=== PATIENT | female | born 1945 | race Caucasian/White ===

== ENCOUNTER 2017-09-22 08:43 | Inpatient (IN) | payer OTHER ==
[~2017-09-22] VITALS: Ht 157.5 cm; Wt 107.2 kg
[~2017-09-22 08:43] MED LIST: ESCI10TA PO; LISI-706 PO; PERCOT PO; TRAM50TA2 PO; TRAZ50TA2 PO; ZOLP-158 PO
[2017-09-22] MEDS ORDERED: ceFAZolin 1GM/50ML 100 ML IV ONE (09:12)
[2017-09-22] MEDS ORDERED: ACETAMINOPHEN IV 1000 MG/100ML (10MG/ML) IV ONE (09:15)
[2017-09-22] MEDS ORDERED: PREGABALIN CAPSULE 75 MG CAP PO ONE (09:15)
[2017-09-22] MEDS ORDERED: ceFAZolin 1GM 2 GM in D5W 5% 100 ML IV ONE (09:15)
[2017-09-22] MEDS ORDERED: CELECOXIB 100 MG CAP PO ONE (09:15)
[2017-09-22] MEDS ORDERED: LIDOCAINE W/ EPINEPHRINE 2% INJ 20ML VIAL ONE (09:17)
[2017-09-22] MEDS ORDERED: ROPIVACAINE 0.5% (5MG/ML) 20ML AMPULE IJ ONE (09:17)
[2017-09-22] MEDS ORDERED: MIDAZOLAM HCL 1MG/1ML-2 ML VIAL ONE (09:26)
[2017-09-22] MEDS ORDERED: TRANEXAMIC ACID 1,000 mg/10ml INJ VIAL ONE (12:01)
[2017-09-22] MEDS ORDERED: KETOROLAC TROMETH 30 MG/ML 1ML VIAL ONE (12:03)
[2017-09-22] MEDS ORDERED: MORPHINE SULF(PF) 0.5MG/ML 10ML VIAL ONE ×2 (12:17→12:55)
[2017-09-22] MEDS ORDERED: ROCURONIUM 10MG/ML 10ML VIAL IV ONE (12:42)
[2017-09-22] MEDS ORDERED: fentaNYL CITRATE 5 ML ONE (12:42)
[2017-09-22] MEDS ORDERED: PROPOFOL 10 MG/ML 20 ML IV ONE (12:43)
[2017-09-22] MEDS ORDERED: GENTAMICIN SULF 80 MG/2 ML VIAL IV ONE (13:04)
[2017-09-22] MEDS ORDERED: DEXAMETHASONE SOD PHOS 10MG/1ML VIAL INJ IV ONE (13:04)
[2017-09-22] MEDS ORDERED: MORPHINE SULFATE INJECTION 1 ML ONE (13:50)
[2017-09-22] MEDS ORDERED: OXYCODONE HCL 5MG TAB PO PRN ×2 (16:45→17:15)
[2017-09-22] MEDS ORDERED: hydrALAZINE HCL 20 MG/ML VL IV PRN (16:45)
[2017-09-22] MEDS ORDERED: ePHEDrine SULFATE 50 MG/ML AMP IV PRN (16:45)
[2017-09-22] MEDS ORDERED: ACETAMINOPHEN 325 MG TAB PO PRN (16:45)
[2017-09-22] MEDS ORDERED: NITROGLYCERIN 0.4 MG SL TAB SL PRN (16:45)
[2017-09-22] MEDS ORDERED: MORPHINE SULFATE 4 MG/ML SYR/VIAL IV PRN ×3 (16:45)
[2017-09-22] MEDS ORDERED: ONDANSETRON HCL 4 MG/2 ML VIAL IV ONE (16:45)
[2017-09-22 17:14] LABS: Hematocrit 31.6 % (36.0-46.0); Hemoglobin 10.2 g/dL (12.2-16.2)
[2017-09-22] MEDS: LACTATED RINGER'S 1,000 ML IV SCH (18:04)
[2017-09-22 20:00] VITALS: BP 121/61
[2017-09-22] MEDS: ZOLPIDEM TARTRATE 5 MG TAB PO SCH (22:02)
[2017-09-22] MEDS: oxyCODONE ER 10 MG TAB PO SCH (22:02)
[2017-09-22] MEDS: ceFAZolin 1GM 2 GM in D5W 5% 100 ML IV SCH (22:02)
[2017-09-22 22:19] VITALS: BP 121/61
[2017-09-23] MEDS: LACTATED RINGER'S 1,000 ML IV SCH ×2 (02:13→12:45)
[2017-09-23 04:56] VITALS: BP 119/59
[2017-09-23] MEDS: ceFAZolin 1GM 2 GM in D5W 5% 100 ML IV SCH ×3 (05:56→21:57)
[2017-09-23 06:54] LABS: Basophils # (auto) 0 uL; Eosinophils # (auto) 0 uL; Hematocrit 28.7 % (36.0-46.0); Hemoglobin 9.4 g/dL (12.2-16.2); Lymphocytes # (auto) 0.6 uL; Lymphocytes % (auto) 4.7 % (10.0-50.0); Mean Corpuscular Hemoglobin 27.2 pg (28.0-32.0); Mean Corpuscular Hgb Conc. 32.7 g/dL (32.0-36.0); Mean Corpuscular Volume 83.2 fL (80.0-100.0); Monocytes # (auto) 0.7 uL; Monocytes % (auto) 4.9 % (0.0-12.0); Neutrophils # (auto) 12.1 uL; Neutrophils % (auto) 90.4 % (37.0-80.0); Platelet Count (auto) 280 10^3/uL (140-450); Red Blood Cells 3.45 10^6/uL (4.0-5.20); Red Cell Distribution Width 14.4 % (11.8-14.3); White Blood Cell 13.4 10^3/uL (4.4-10.8)
[2017-09-23 07:08] LABS: BUN/Creatinine Ratio 21.3; Calcium 8.9 mg/dL (8.5-10.1)
[2017-09-23 08:00] VITALS: BP 112/60
[2017-09-23] MEDS: ENOXAPARIN SOD 40 MG/0.4 ML SYRINGE SC SCH (09:29)
[2017-09-23] MEDS: LISINOPRIL 20 MG TAB PO SCH (09:31)
[2017-09-23] MEDS: oxyCODONE ER 10 MG TAB PO SCH ×2 (09:31→21:56)
[2017-09-23] MEDS: CITALOPRAM HYDROBR 20 MG TAB PO SCH (09:31)
[2017-09-23] MEDS: HCTZ 25 MG TAB PO SCH (09:32)
[2017-09-23] MEDS: PATIENTS OWN MEDICATION (Lisinopril & Hydrochlorothiazi (Zestoretic 20-12.5 mg) 1 TAB) PO SCH (09:52)
[2017-09-23 09:53] VITALS: BP 112/60
[2017-09-23] MEDS: KETOROLAC TROMETH 30 MG/ML 1ML VIAL IV PRN ×2 (12:29→20:16)
[2017-09-23 13:00] VITALS: BP 111/90
[2017-09-23 16:36] VITALS: BP 121/61
[2017-09-23 21:49] VITALS: BP 110/85
[2017-09-23] MEDS: ZOLPIDEM TARTRATE 5 MG TAB PO SCH (21:56)
[2017-09-24] VITALS (7 sets, daily range): BP systolic 106–145; BP diastolic 53–69
[2017-09-24] MEDS: KETOROLAC TROMETH 30 MG/ML 1ML VIAL IV PRN ×3 (04:58→20:51)
[2017-09-24] MEDS: ceFAZolin 1GM 2 GM in D5W 5% 100 ML IV SCH ×3 (05:39→22:27)
[2017-09-24] MEDS: LISINOPRIL 20 MG TAB PO SCH ×2 (10:00→11:00)
[2017-09-24] MEDS: PATIENTS OWN MEDICATION (Lisinopril & Hydrochlorothiazi (Zestoretic 20-12.5 mg) 1 TAB) PO SCH (10:00)
[2017-09-24] MEDS: CITALOPRAM HYDROBR 20 MG TAB PO SCH (10:52)
[2017-09-24] MEDS: oxyCODONE ER 10 MG TAB PO SCH ×2 (10:56→22:27)
[2017-09-24] MEDS: ENOXAPARIN SOD 40 MG/0.4 ML SYRINGE SC SCH (11:00)
[2017-09-24] MEDS: LACTATED RINGER'S 1,000 ML IV SCH ×3 (11:01→19:23)
[2017-09-24] MEDS: HCTZ 25 MG TAB PO SCH (11:04)
[2017-09-24] MEDS ORDERED: hydrALAZINE HCL 20 MG/ML VL IV PRN (13:45)
[2017-09-24] MEDS: ZOLPIDEM TARTRATE 5 MG TAB PO SCH (22:26)
[2017-09-25] MEDS: LACTATED RINGER'S 1,000 ML IV SCH ×2 (04:44→14:45)
[2017-09-25 05:30] VITALS: BP 142/67
[2017-09-25] MEDS: ceFAZolin 1GM 2 GM in D5W 5% 100 ML IV SCH ×2 (05:57→16:11)
[2017-09-25 09:12] VITALS: BP 134/60
[2017-09-25] MEDS: CITALOPRAM HYDROBR 20 MG TAB PO SCH (09:28)
[2017-09-25] MEDS: oxyCODONE ER 10 MG TAB PO SCH (09:28)
[2017-09-25] MEDS: ENOXAPARIN SOD 40 MG/0.4 ML SYRINGE SC SCH (09:29)
[2017-09-25] MEDS: HCTZ 25 MG TAB PO SCH (09:29)
[2017-09-25] MEDS: PATIENTS OWN MEDICATION (Lisinopril & Hydrochlorothiazi (Zestoretic 20-12.5 mg) 1 TAB) PO SCH (09:32)
[2017-09-25] MEDS: LISINOPRIL 20 MG TAB PO SCH (09:32)
[2017-09-25 12:19] VITALS: BP 147/60
[2017-09-25] MEDS: KETOROLAC TROMETH 30 MG/ML 1ML VIAL IV PRN (15:57)
[2017-09-25 16:34] VITALS: BP 147/64
== END 2017-09-25 17:30 | DRG 470 ==
LOC: SUR 08:43 → CENTRAL 08:44
PROVIDERS: ADMIT Orthopaedic Surgery Adult Reconstructive Orthopaedic Surgery; ATTEND Orthopaedic Surgery Adult Reconstructive Orthopaedic Surgery
PROC: 0SRB0JZ Replacement of Left Hip Joint with Synthetic Substitute, Open Approach (ICD-10-PCS; principal; 2017-09-23)
DX: M16.12 Unilateral primary osteoarthritis, left hip (principal); F32.9 Major depressive disorder, single episode, unspecified; I10 Essential (primary) hypertension; M81.0 Age-related osteoporosis without current pathological fracture; R32 Unspecified urinary incontinence; Z87.891 Personal history of nicotine dependence; Q72.812 Congenital shortening of left lower limb; Z74.01 Bed confinement status
CPT/HCPCS: 36415; 72170; 73501; 80048; 85014; 85018; 85025; 86850; 86900; 86901; 97116; 97163; 97530; A4565; J0131; J0690; J1100; J1885; J2250; J2405; J2704; J7060

== ENCOUNTER 2021-04-08 17:22 | Emergency (ER) | payer OTHER ==
[~2021-04-08] VITALS: Ht 162.6 cm; Wt 108.4 kg
[~2021-04-08 17:22] MED LIST changes: -ESCI10TA PO; -ZOLP-158 PO
[2021-04-08 20:59] VITALS: BP 127/49
[2021-04-08] MEDS ORDERED: KETOROLAC TROMETH 60MG/2ML VIAL IM ONE (21:15)
[2021-04-08] MEDS ORDERED: methylPREDNISolone SOD SUCC 125 MG/2 ML VL IM ONE (21:15)
== END 2021-04-08 23:05 | disposition home or self-care (01) ==
LOC: ER 17:22
DX: M16.11 Unilateral primary osteoarthritis, right hip (principal); M25.551 Pain in right hip; E66.9 Obesity, unspecified; I10 Essential (primary) hypertension; Z68.41 Body mass index [BMI] 40.0-44.9, adult; Z79.899 Other long term (current) drug therapy; Z87.891 Personal history of nicotine dependence
CPT/HCPCS: 72100; 73502; 96372; 99284; J1885; J2930

== ENCOUNTER 2023-04-02 17:23 | Emergency (ER) | payer OTHER ==
[~2023-04-02] VITALS: Ht 165.1 cm; Wt 90.9 kg
[~2023-04-02 17:23] MED LIST changes: +TRAZ-227 PO; -TRAZ50TA2 PO
[2023-04-02 18:30] VITALS: PULSE 67; RESP 12; O2SAT 94
[2023-04-02 20:00] VITALS: BP 154/61; PULSE 72; RESP 16; TEMP 98.1; O2SAT 93
== END 2023-04-02 20:03 | disposition home or self-care (01) ==
LOC: EDBD 17:23 → ER 17:23
DX: S01.112A Laceration without foreign body of left eyelid and periocular area, initial encounter (principal); M54.50 Low back pain, unspecified; M54.2 Cervicalgia; M25.552 Pain in left hip; I10 Essential (primary) hypertension; Z87.891 Personal history of nicotine dependence; Z79.899 Other long term (current) drug therapy; V87.8XXA Person injured in other specified noncollision transport accidents involving motor vehicle (traffic), initial encounter; Y93.89 Activity, other specified; Y92.89 Other specified places as the place of occurrence of the external cause; Y99.8 Other external cause status
CPT/HCPCS: 12011; 70450; 72100; 72125; 73502

== ENCOUNTER 2023-12-08 07:26 | Inpatient (IN) | payer OTHER ==
[~2023-12-08] VITALS: Ht 162.6 cm; Wt 97.5 kg
[2023-12-08] VITALS (12 sets, daily range): BP systolic 92–135; BP diastolic 53–64; PULSE 61–95; RESP 14–20; TEMP 97.5–97.8; O2SAT 81–98
[~2023-12-08 07:26] MED LIST changes: +ACET-1304 PO; +AMLO1TAB23 PO; +CHOL20004 PO; +FERR65TA12 PO; -LISI-706 PO; +METH50006 SL; +MORP15TA PO; +OMEP-434 PO; -PERCOT PO; -TRAM50TA2 PO; -TRAZ-227 PO
[2023-12-08] MEDS: ACETAMINOPHEN IV 100 ML IV ONE (08:51)
[2023-12-08] MEDS: ceFAZolin 2 GM/D5W50ml 50 ML IV ONE (08:51)
[2023-12-08] MEDS: BUPIVACAINE 0.25% INJ 50ML VIAL ONE (09:16)
[2023-12-08] MEDS: VANCOMYCIN HCL 1000 MG VL ONE (09:16)
[2023-12-08] MEDS: TRANEXAMIC ACID 20 ML ONE (09:16)
[2023-12-08] MEDS: ACETAMINOPHEN IV 1000 MG/100ML (10MG/ML) IV ONE (09:20)
[2023-12-08] MEDS: CELECOXIB 100 MG CAP PO ONE (09:20)
[2023-12-08] MEDS ORDERED: MORPHINE SULF PF 5 MG/10 ML VIAL ONE (09:26)
[2023-12-08] MEDS ORDERED: fentaNYL CITRATE 100 MCG/2 ML VL ONE (09:26)
[2023-12-08] MEDS ORDERED: MIDAZOLAM HCL 2MG/2ML 2ml VIAL (1mg/ml) ONE ×2 (09:26)
[2023-12-08] MEDS: TETRACAINE 1% INJ 2 ML VIAL IJ ONE (09:36)
[2023-12-08] MEDS ORDERED: NALOXONE HCL 0.4 MG/ML VIAL IV PRN (10:15)
[2023-12-08] MEDS: ONDANSETRON HCL 4 MG/2 ML VIAL IV ONE (10:15)
[2023-12-08] MEDS ORDERED: ONDANSETRON HCL 4 MG/2 ML VIAL IV PRN ×2 (10:15→11:45)
[2023-12-08] MEDS ORDERED: MIDAZOLAM HCL 2MG/2ML 2ml VIAL (1mg/ml) IV PRN (10:15)
[2023-12-08] MEDS ORDERED: HYDROmorphone HCL 2 MG/ML VL/or syr IV PRN ×2 (10:15→11:45)
[2023-12-08] MEDS ORDERED: DexAMETHasone SOD PHOS 10MG/1ML VIAL INJ IV PRN (10:15)
[2023-12-08] MEDS ORDERED: LABETALOL HCL 5 MG/ML 4ML SYRINGE IV PRN (10:15)
[2023-12-08] MEDS ORDERED: ePHEDrine SULFATE 50 MG/ML AMP IV PRN (10:15)
[2023-12-08] MEDS ORDERED: DexAMETHasone SOD PHOS 10MG/1ML VIAL INJ ONE (11:05)
[2023-12-08] MEDS: KETOROLAC TROMETH 30 MG/ML 1ML VIAL ONE (11:25)
[2023-12-08] MEDS: MORPHINE SULF PF 5 MG/10 ML VIAL ONE (11:25)
[2023-12-08] MEDS ORDERED: MORPHINE SULFATE INJ 2 MG/ml SYRG IV PRN (11:45)
[2023-12-08] MEDS: LACTATED RINGER'S 1,000 ML IV SCH (11:45)
[2023-12-08] MEDS ORDERED: OXYCODONE W/ ACETAMINOPHEN 5/325MG TABLET PO PRN (11:45)
[2023-12-08] MEDS ORDERED: NITROGLYCERIN 0.4 MG SL TAB SL PRN (11:45)
[2023-12-08] MEDS ORDERED: MORPHINE SULFATE 15 MG PO SCH (14:00)
[2023-12-08] MEDS: SODIUM CHLOR 0.9% PF (SALINE LOCK) 10ML VIAL/SYR IV SCH (14:00)
[2023-12-08] MEDS: ceFAZolin 1GM/50ML 50 ML IV SCH (14:43)
[2023-12-08] MEDS: PREGABALIN CAPSULE 75 MG CAP PO SCH (14:44)
[2023-12-08] MEDS: FERROUS SULFATE DRIED 65 MG PO SCH (18:00)
[2023-12-08] MEDS ORDERED: OMEPRAZOLE MAGNESIUM 40 MG PO SCH (18:00)
[2023-12-08] MEDS: DOCUSATE SOD 100 MG CAP PO SCH (21:45)
[2023-12-08] MEDS: oxyCODONE ER 10 MG TAB PO SCH (22:00)
[2023-12-09] VITALS (27 sets, daily range): BP systolic 113–150; BP diastolic 47–93; PULSE 57–89; RESP 12–99; TEMP 97.6–98.7; O2SAT 92–99
[2023-12-09 06:12] LABS: Hematocrit 30.1 % (36.0-46.0); Hemoglobin 9.2 g/dL (12.2-16.2)
[2023-12-09 06:32] LABS: Albumin 3.3 g/dL (3.2-4.8); Alkaline Phosphatase 67 U/L (46-116); Anion Gap 7 (5-15); Aspartate Aminotransferase 19 U/L (13-40); Bilirubin, Total 0.2 mg/dL (0.2-1.0); Blood Urea Nitrogen 18 mg/dL (9-23); Calcium 10.3 mg/dL (8.5-10.1); Carbon Dioxide 25 mmol/L (20-30); Chloride 105 mmol/L (98-107); Glucose 138 mg/dL (74-106); Potassium 3.7 mmol/L (3.5-5.1); Sodium 137 mmol/L (136-145); Total Protein 5.8 g/dL (5.7-8.2)
[2023-12-09 06:37] LABS: Alanine Aminotransferase < 9 U/L (7-40)
[2023-12-09] MEDS: PANTOPRAZOLE 40 MG TAB PO SCH (09:56)
[2023-12-09] MEDS: ENOXAPARIN SOD 40 MG/0.4 ML SYRINGE SC SCH (09:56)
[2023-12-09] MEDS: ceFAZolin 1GM/50ML 50 ML IV ONE (09:56)
[2023-12-09] MEDS: amLODIPine BESYLATE 5 MG TAB PO SCH (09:58)
[2023-12-09] MEDS ORDERED: CHOLECALCIFEROL PO SCH (10:00)
[2023-12-09] MEDS ORDERED: PATIENTS OWN MEDICATION (Amlodipine Besylate 10 MG) PO SCH (10:00)
[2023-12-09] MEDS: MECOBALAMIN SL SCH (10:00)
[2023-12-10 00:59] VITALS: O2SAT 96
[2023-12-10 01:06] VITALS: BP 143/64; PULSE 58; RESP 17; TEMP 98.7; O2SAT 91
[2023-12-10 05:00] VITALS: BP 139/64; PULSE 62; RESP 19; TEMP 97.7; O2SAT 99
[2023-12-10 06:50] LABS: Hematocrit 27.9 % (36.0-46.0); Hemoglobin 8.7 g/dL (12.2-16.2)
[2023-12-10 08:00] VITALS: PULSE 62; O2SAT 93
[2023-12-10 09:00] VITALS: BP 146/52; PULSE 67; RESP 18; TEMP 98.3; O2SAT 93
[2023-12-10 13:00] VITALS: BP 114/45; PULSE 62; RESP 20; TEMP 99.2; O2SAT 95
== END 2023-12-10 15:50 | disposition home health service (06) | DRG 470 ==
LOC: SUR 07:26 → TELE 11:37 → TELE-CENTR 16:36
PROVIDERS: ADMIT Orthopaedic Surgery Adult Reconstructive Orthopaedic Surgery; ATTEND Orthopaedic Surgery Adult Reconstructive Orthopaedic Surgery
PROC: 0SR9019 Replacement of Right Hip Joint with Metal Synthetic Substitute, Cemented, Open Approach (ICD-10-PCS; principal; 2023-12-08 09:43)
DX: M16.11 Unilateral primary osteoarthritis, right hip (principal); E78.00 Pure hypercholesterolemia, unspecified; M79.18 Myalgia, other site; I10 Essential (primary) hypertension; Z82.49 Family history of ischemic heart disease and other diseases of the circulatory system
CPT/HCPCS: 36415; 72170; 73501; 80053; 85014; 85018; 86850; 86900; 86901; 97110; 97116; 97163; 97530; G0378; J0131; J1100; J1885; J2250; J3490

== ENCOUNTER 2025-07-17 07:55 | Inpatient (IN) | payer OTHER ==
[~2025-07-17] VITALS: Ht 162.6 cm; Wt 92.0 kg
[2025-07-17 08:50] VITALS: PULSE 53; RESP 11; O2SAT 98
--- NOTE | 2025-07-17 09:12 | ED.PDOC ---
History of Present Illness HPI Comments 80-year-old female BIBA with prior medical history of hypertension and then chief complaint of lower extremity pain status post fall. Patient reports the she got up to take care of her dog and lost her balance causing her to fall onto her left side injuring her left leg. Patient does have an abrasion to the right hand and has right wrist pain at this time. Daughter who was on scene called EMS and when EMS arrived they gave the patient 100mcg of fentanyl via IV they placed to the left AC. Denies any other symptoms at this time. Denies LOC, chills, fever, N/V/D, SOB, CP. No other associated symptoms, modifiers, recent injuries or sick contacts present at this time. Chief Complaint: Lower Extremity Time Seen by MD: 09:00 Primary Care Provider: Unknown Reviewed Notes: Nurses Notes, [employer] Developer Notes, Medications, Allergies Allergies: Coded Allergies: NO KNOWN ALLERGIES (Unverified , 09/18/17) Home Meds Reported Medications Mecobalamin (B12) 5,000 Mcg Sub, 2500 MCG SL DAILY, INJ 12/05/23 Cholecalciferol (D3) 50 Mcg Cap, 2 CAP PO DAILY, CAP 24 Ferrous Sulfate Dried (Iron High Potency) 65 Mg Tab, 2 TAB PO QPM, TAB 24 Amlodipine Besylate (Amlodipine Besylate) 10 Mg Tab, 10 MG PO DAILY, TAB 24 Omeprazole Magnesium (Omeprazole) 20 Mg Tab, 40 MG PO QPM, TAB 24 Acetaminophen (Tylenol Extra Strength) 500 Mg Tab, 2 TAB PO PRN, TAB 12/05/23 Morphine Sulfate (Morphine Sulfate) 15 Mg Tab, 15 MG PO TID, TAB 12/05/23 Information Source: Patient Mode of Arrival: EMS Severity: Moderate Timing: Minutes Duration: Since onset, Minutes Prehospital treatment: None Past Medical History PAST MEDICAL HISTORY: HTN Surgical History: Unknown 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 Family History Family History: Reviewed,noncontributory to illness, Unknown Social History Smoker: Quit Less Than 1 Year Alcohol: Occasionally Drugs: Denies Drug Use Lives In: Home Constitutional: denies: chills, diaphoresis, fatigue, fever, malaise, sweats, weakness, others EENTM: denies: blurred vision, double vision, ear bleeding, ear discharge, ear drainage, ear pain, ear ringing, eye pain, eye redness, hearing loss, mouth pain, mouth swelling, nasal discharge, nose bleeding, nose congestion, nose pain, photophobia, tearing, throat pain, throat swelling, voice changes, others Respiratory: denies: cough, hemoptysis, orthopnea, SOB at rest, shortness of breath, SOB with excertion, stridor, wheezing, others Cardiovascular: denies: chest pain, dizzy spells, diaphoresis, Dyspnea on exertion, edema, irregular heart beat, left arm pain, lightheadedness, palp itations, PND, syncope, others Gastrointestinal: denies: abdomen distended, abdominal pain, blood streaked bowels, constipated, diarrhea, dysphagia, difficulty swallowing, hematemesis, melena, nausea, poor appetite, poor fluid intake, rectal bleeding, rectal pain, vomiting, others Genitourinary: denies: abnormal vagina bleeding, burning, dyspareunia, dysuria, flank pain, frequency, hematuria, incontinence, pain, , vagina discharge, urgency, others Neurological: denies: dizziness, fainting, headache, left sided numbness, left sided weakness, numbness, paresthesia, pre-existing deficit, right sided numbness, right sided weakness, seizure, speech problems, tingling, tremors, weakness, others Musculoskeletal: reports: others (Left leg pain); denies: back pain, gout, joint pain, joint swelling, muscle pain, muscle stiffness, neck pain Integumetry: denies: bruises, change in color, change in hair/nails, dryness, laceration, lesions, lumps, rash, wounds, others Allergic/Immunocompromised: denies: Difficulty Healing, Frequent Infections, Hives, Itching, others Hematologic/Lymphatic: denies: anemia, blood clots, easy bleeding, easy bruising, swollen glands, others Endocrine: denies: excessive hunger, excessive sweating, excessive thirst, excessive urination, flushing, intolerance to cold, intolerance to heat, unexplained weight gain, unexplained weight loss, others Psychiatric: denies: anxiety, bipolar disorder, depression, hopeless, panic disorder, schizophrenia, sleepless, suicidal, others All Other Systems: Reviewed and Negative Physical Exam Exam Comments Appears uncomfortable, left leg pain, right wrist pain, abrasion to the right palm General Appearance: No Apparent Distress, Normal HEENT: Normal ENT Inspection, Pharynx Normal, TMs Normal Neck: Full Range of Motion, Non-Tender, Normal, Normal Inspection Respiratory: Chest Non-Tender, Lungs Clear, No Accessory Muscle Use, No Respiratory Distress, Normal Breath Sounds Cardiovascular: No Edema, No JVD, No Murmur, No Gallop, Normal Peripheral Pulses, Regular Rate/Rhythm Breast Exam: Deferred Gastrointestinal: No Organomegaly, Non Tender, No Pulsatile Mass, Normal Bowel Sounds, Soft Genitalia: Deferred Pelvic: Deferred Rectal: Deferred Extremities: No calf tenderness, Normal capillary refill, Normal inspection, Normal range of motion, Non-tender, No pedal edema Musculoskeletal : Apperance: Normal Neurologic: 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 Was a procedure done?: No Differential Dx Considerations may include: ACS, CVA, hip fracture, hypertensive urgency X-Ray, Labs, Meds, VS Vital Signs Date Time Temp Pulse Resp B/P (MAP) Pulse Ox O2 Delivery O2 Flow Rate FiO2 07/17/25 10:29 97.8 56 14 208/91 (130) 96 97.8 07/17/25 08:50 97.7 53 11 220/84 (129) 98 97.7 07/17/25 08:50 53 11 98 Nasal Cannula* 2 28 07/17/25 08:01 97.8 63 18 213/82 97 97.8 Lab Test 07/17/25 11:10 Range/Units White Blood Count 9.8 4.4-10.8 10^3/uL Red Blood Count 4.88 4.0-5.20 10^6/uL Hemoglobin 13.5 12.2-16.2 g/dL Hematocrit 41.0 36.0-46.0 % Mean Corpuscular Volume 84.0 80.0-100.0 fL Mean Corpuscular Hemoglobin 27.6 L 28.0-32.0 pg Mean Corpuscular Hemoglobin Concent 32.9 32.0-36.0 g/dL Red Cell Distribution Width 13.9 11.8-14.3 % Platelet Count 290 140-450 10^3/uL Mean Platelet Volume 9.4 6.9-10.8 fL Neutrophils (%) (Auto) 89.3 H 37.0-80.0 % Lymphocytes (%) (Auto) 6.4 L 10.0-50.0 % Monocytes (%) (Auto) 4.0 0.0-12.0 % Eosinophils (%) (Auto) 0.1 0.0-7.0 % Basophils (%) (Auto) 0.2 0.0-2.0 % Neutrophils # (Auto) 8.8 H 1.6-8.6 10 ^3/uL Lymphocytes # (Auto) 0.6 0.4-5.4 10 ^3/uL Monocytes # (Auto) 0.4 0-1.3 10 ^3/uL Eosinophils # (Auto) 0 0-0.8 10 ^3/uL Basophils # (Auto) 0 0-0.2 10 ^3/uL Nucleated Red Blood Cells 0.0 % Sodium Level 142 136-145 mmol/L Potassium Level 3.9 3.5-5.1 mmol/L Chloride Level 101 98-107 mmol/L Carbon Dioxide Level 31 20-31 mmol/L Anion Gap 10 5-15 Blood Urea Nitrogen 12 9-23 mg/dL Creatinine 1.09 H 0.550-1.02 mg/dL Glomerular Filtration Rate Calc 52 >90 mL/min BUN/Creatinine Ratio 11.0 10.0-20.0 Serum Glucose 95 74-106 mg/dL Calcium Level 10.7 H 8.7-10.4 mg/dL Time of 1ST Reevaluation: 09:30 Reevaluation 1ST: Unchanged Patient Education/Counseling: Diagnosis, Treatment, Prognosis Family Education/Counseling: No Family Present SEPSIS Sepsis Screen Date sepsis recognized/suspect: Jul 17, 2025 Time Sepsis recognized/suspect: 075 Recent Procedure: No On Antibiotic Therapy: No Respiratory Rate >20: No Heart Rate >90: No Temp<36 C (96.8 F) or >38.3 C: No SBP <90 or MAP <65 mmHG: No New Acute Mental Status Change: No Is the patient on CPAP, BIPAP,: No Physician Orders L Hip Complete Xray (07/17/25 08:00) Vital Signs Date Time Temp Pulse Resp B/P (MAP) Pulse Ox O2 Delivery O2 Flow Rate FiO2 07/17/25 10:29 97.8 56 14 208/91 (130) 96 97.8 07/17/25 08:50 97.7 53 11 220/84 (129) 98 97.7 07/17/25 08:50 53 11 98 Nasal Cannula* 2 28 07/17/25 08:01 97.8 63 18 213/82 97 97.8 Laboratory Tests Test 07/17/25 11:10 White Blood Count 9.8 10^3/uL (4.4-10.8) Departure 1 Departure Time of Disposition: 12:26 (Patient presented with hypertension and symptoms concerning for hypertensive emergency. Patient is receiving iv blood pressure medications requiring intensive monitoring. Data: 1. I ordered and reviewed the result of at least 3 labs including a CBC, BMP, and Urinalysis. 2. I independently interpreted the following tests: Chest x-ray appears benign. EKG which is Normal Sinus RhythmRisk:This patient has a high risk of morbidity due to further diagnostic testing or treatment and may suffer from an acute cardiac disorder. Workup reveals hypertensive emergency and patient should be admitted for further workup. and possible expert consultation. ) Impression: Primary Impression: Hypertensive urgency Additional Impressions: Left hip pain Fall Disposition: 09 ADMITTED INPATIENT Admit to: Tele Condition: Guarded Critical Care Note Critical Care Time?: Yes Critical care comment: Hypertensive urgency Authorized and Performed by: Steve Cardoso MD Total critical care time: Approximately 38 minutes Due to a high probability of clinically significant, life threatening deterioration, the patient required my highest level of preparedness to intervene emergently and I personally spent this critical care time directly and personally managing the patient. This critical care time included obtaining a history; examining the patient; pulse oximetry; ordering and review of studies; arranging urgent treatment with development of a management plan; evaluation of patient's response to treatment; frequent reassessment; and, discussions with other providers. This critical care time was performed to assess and manage the high probability of imminent, life-threatening deterioration that could result in multi-organ failure. It was exclusive of separately billable procedures and treating other patients and teaching time. Please see my other sections and the rest of the note for further information on patient assessment and treatment. Stability Stability form required: No I personally scribed for STEVE CARDOSO MD ([email or web address]) on 07/17/25 at 09:12. Electronically submitted by Linus Yao ([email or web address]). STEVE CARDOSO MD Jul 17, 2025 09:12
--- NOTE | 2025-07-17 09:18 | DVH ---
CLINICAL INFORMATION: Fall injury. TECHNIQUE: 3 views of the pelvis and left hip were obtained. COMPARISON: Pelvis radiograph dated 12/08/2023. FINDINGS: Postsurgical changes of bilateral total hip arthroplasty. No evidence of acute fracture. No acute prosthesis complication visualized. Similar- appearing prominent osseous spurring at the anterior inferior iliac spine. The bones are diffusely demineralized, limiting evaluation for subtle fractures. Sacrum and coccyx are partially obscured by bowel gas. Large calcified mass in the left hemipelvis, unchanged, may be due to calcified fibroid. Adjacent soft tissues are grossly unremarkable. IMPRESSION: 1. No radiographic evidence of acute fracture. 2. No evidence of acute prosthesis complication visualized. 3. Nonacute findings as described above.
[2025-07-17 11:46] LABS: Hematocrit 41.0 % (36.0-46.0); Hemoglobin 13.5 g/dL (12.2-16.2); Mean Corpuscular Hemoglobin 27.6 pg (28.0-32.0); Mean Corpuscular Volume 84.0 fL (80.0-100.0); Nucleated Red Blood Cells % 0.0 %
[2025-07-17 11:58] LABS: Chloride 101 mmol/L (98-107); Potassium 3.9 mmol/L (3.5-5.1); Sodium 142 mmol/L (136-145)
[2025-07-17 11:59] LABS: Anion Gap 10 (5-15)
[2025-07-17 12:02] LABS: Calcium 10.7 mg/dL (8.7-10.4); Carbon Dioxide 31 mmol/L (20-31)
[2025-07-17 12:05] LABS: BUN/Creatinine Ratio 11.0 (10.0-20.0); Blood Urea Nitrogen 12 mg/dL (9-23); Glucose 95 mg/dL (74-106)
[2025-07-17] MEDS: hydrALAZINE HCL 20 MG/ML VL IV ONE (12:35)
--- NOTE | 2025-07-17 12:45 | ECG ---
[facility] Test Date: 2025-07-17 Test Time: 12:44:14 Pat Name: AURORA BOLAND Department: ED Room: 0280 Gender: F Production Roustabout: shama : 1945 Requested By: STEVE ORTIZ Order Number: [id number] Reading MD: Duglas Vogel Measurements Intervals [place] Rate: 85 P: 41 IA: 154 QRS: -16 QRSD: 84 T: 62 QT: 385 QTc: 458 Interpretive Statements Sinus rhythm LAE, consider biatrial enlargement Probable left ventricular hypertrophy Baseline wander in lead(s) III,V1,V2,V4,V6 Electronically Signed On 07-21-2025 8:35:48 PST by Duglas Vogel Please click the below link to view image of tracing.
--- NOTE | 2025-07-17 13:03 | DVH ---
CHEST RADIOGRAPH INDICATION: cp TECHNIQUE: Single frontal view of the chest was obtained COMPARISON: None FINDINGS: Lines and Tubes: None Lungs: No focal consolidation. Pleura: No effusion. No pneumothorax. Cardiomediastinal contours: Unremarkable Bones: No acute osseous abnormality. IMPRESSION: 1. No acute cardiopulmonary disease.
--- NOTE | 2025-07-17 13:44 | ECG ---
[facility] Test Date: 2025-07-17 Test Time: 13:43:13 Pat Name: AURORA BOLAND Department: ED Room: 0280 Gender: F Web Design Instructor: shama : 1945 Requested By: STEVE ORTIZ Order Number: [id number] Reading MD: Duglas Vogel Measurements Intervals [place] Rate: 112 P: 24 NE: 165 QRS: -27 QRSD: 87 T: 87 QT: 346 QTc: 473 Interpretive Statements Sinus tachycardia with irregular rate Probable left atrial enlargement Anterior infarct, old Baseline wander in lead(s) I,II,aVR,aVF,V6 Electronically Signed On 07-21-2025 8:35:59 PST by Duglas Vogel Please click the below link to view image of tracing.
--- NOTE | 2025-07-17 14:14 | DVHHP2 ---
History of Present Illness Reason for Visit: Mechanical fall from ground level with the hip pain left side History of Present Illness 80-year-old female BIBA with prior medical history of hypertension and then chief complaint of lower extremity pain status post fall. Patient reports the she got up to take care of her dog and lost her balance causing her to fall onto her left side injuring her left leg. Patient does have an abrasion to the right hand and has right wrist pain at this time. Daughter who was on scene called EMS and when EMS arrived they gave the patient 100mcg of fentanyl via IV they placed to the left AC. Denies any other symptoms at this time. Denies LOC, chills, fever, N/V/D, SOB, CP. No other associated symptoms, modifiers, recent injuries or sick contacts present at this time. Past Medical History Hypertension Past Surgical History: Total hip replacement Family History: Hypertension Smoke: No ALCOHOL: occassional Lives: with Family Review of Systems Review of Systems No complaints of chest pain shortness for breath dizziness or lightheadedness. Other review of systems reviewed normal. Allergies: Coded Allergies: NO KNOWN ALLERGIES (Unverified , 09/18/17) Medications Current Medications Medications Dose Ordered Sig/Keron Route Start Time Stop Time Status Last Admin Dose Admin Amlodipine Besylate 10 mg DAILY PO 07/18/25 10:00 Patient Own Medication 2 cap DAILY PO 07/18/25 10:00 UNV Patient Own Medication 2 tab QPM PO 07/17/25 18:00 UNV Exam Vital Signs Vital Signs Date Time Temp Pulse Resp B/P (MAP) Pulse Ox O2 Delivery O2 Flow Rate FiO2 07/17/25 13:43 112 07/17/25 13:10 16 199/69 (112) 96 07/17/25 10:29 97.8 97.8 07/17/25 08:50 Nasal Cannula* 2 28 General Appearance: Alert, Oriented X3, Cooperative, mild distress HEENT: PERRLA, EOMI, Mucous membr. moist/pink Respiratory: Clear to auscultation, Normal air movement Cardiovascular: Regular rate, Normal S1, Normal S2, No murmurs Abdominal: Normal bowel sounds, Soft, No tenderness Extremities: No clubbing, No edema Skin: No rashes Neuro: Other (Complains of pain with moving left hip) Psych/Mental Status: Other Labs/Xrays Labs Test 07/17/25 12:51 07/17/25 11:10 Range/Units White Blood Count 9.8 4.4-10.8 10^3/uL Red Blood Count 4.88 4.0-5.20 10^6/uL Hemoglobin 13.5 12.2-16.2 g/dL Hematocrit 41.0 36.0-46.0 % Mean Corpuscular Volume 84.0 80.0-100.0 fL Mean Corpuscular Hemoglobin 27.6 L 28.0-32.0 pg Mean Corpuscular Hemoglobin Concent 32.9 32.0-36.0 g/dL Red Cell Distribution Width 13.9 11.8-14.3 % Platelet Count 290 140-450 10^3/uL Mean Platelet Volume 9.4 6.9-10.8 fL Neutrophils (%) (Auto) 89.3 H 37.0-80.0 % Lymphocytes (%) (Auto) 6.4 L 10.0-50.0 % Monocytes (%) (Auto) 4.0 0.0-12.0 % Eosinophils (%) (Auto) 0.1 0.0-7.0 % Basophils (%) (Auto) 0.2 0.0-2.0 % Neutrophils # (Auto) 8.8 H 1.6-8.6 10 ^3/uL Lymphocytes # (Auto) 0.6 0.4-5.4 10 ^3/uL Monocytes # (Auto) 0.4 0-1.3 10 ^3/uL Eosinophils # (Auto) 0 0-0.8 10 ^3/uL Basophils # (Auto) 0 0-0.2 10 ^3/uL Nucleated Red Blood Cells 0.0 % Sodium Level 142 136-145 mmol/L Potassium Level 3.9 3.5-5.1 mmol/L Chloride Level 101 98-107 mmol/L Carbon Dioxide Level 31 20-31 mmol/L Anion Gap 10 5-15 Blood Urea Nitrogen 12 9-23 mg/dL Creatinine 1.09 H 0.550-1.02 mg/dL Glomerular Filtration Rate Calc 52 >90 mL/min BUN/Creatinine Ratio 11.0 10.0-20.0 Serum Glucose 95 74-106 mg/dL Calcium Level 10.7 H 8.7-10.4 mg/dL SEPSIS Sepsis Screen Date sepsis recognized/suspect: Jul 17, 2025 Time Sepsis recognized/suspect: 0900 Recent Procedure: No On Antibiotic Therapy: No Respiratory Rate >20: No Heart Rate >90: No Temp<36 C (96.8 F) or >38.3 C: No SBP <90 or MAP <65 mmHG: No New Acute Mental Status Change: No Is the patient on CPAP, BIPAP,: No Physician Orders L Hip Complete Xray (07/17/25 08:00) Chest Portable (07/17/25 12:26) Electrocardigram (07/17/25:) Troponin-I Hs (07/17/25 13:26) Troponin-I Hs (07/17/25:) Amlodipine Tablet (Norvasc Tablet) (07/18/25 10:00) (Nf) Cholecalciferol (D3) (07/18/25 10:00) (Nf) Ferrous Sulfate Dried (Iron High Po (07/17/25 18:00) Ct L Hip With Out Contrast (07/17/25 14:07) Admit (07/17/25 14:07) Cardiac Diet-2gna,Lofat,Lochol (07/17/25 Dinner) Echo 2d Mode Cardiac Dop (07/17/25 14:07) *Consult Dr. Humphrey Ji (07/17/25 14:07) Nitroglycerin Sublingual (Ntrostat Subli (07/17/25 14:15) Morphine Sulfate Injection (07/17/25 14:15) Stat Ekg For Chest Pain (07/17/25 14:07) Notify Md Of Changes From Base (07/17/25 14:07) Compliance Examiner For 24 Hours (07/17/25 14:07) Emergency Dysrhythmia Protocol (07/17/25 14:07) Rhythm Strips Once Every Shift (07/17/25 14:07) Oxygen By Nasal Cannula (07/17/25 14:07) Morphine Sulfate Injection (07/17/25 14:15) Hydrocodone-Acet 10/325mg Tab (Foster 10/ (07/17/25 14:15) Ondansetron Hcl (Zofran) (07/17/25 14:15) Acetaminophen Tablet (Tylenol Tablet) (07/17/25 14:15) Losartan Tablet (Cozaar Tablet) (07/17/25 22:00) Losartan Tablet (Cozaar Tablet) (07/17/25 14:15) Hydralazine Injection (Apresoline Inject (07/17/25 14:15) Sequential Compression Device (07/17/25 14:11) Vital Signs Date Time Temp Pulse Resp B/P (MAP) Pulse Ox O2 Delivery O2 Flow Rate FiO2 07/17/25 13:43 112 07/17/25 13:10 95 16 199/69 (112) 96 07/17/25 12:44 85 07/17/25 12:35 205/103 07/17/25 10:29 97.8 56 14 208/91 (130) 96 97.8 07/17/25 08:50 97.7 53 11 220/84 (129) 98 97.7 07/17/25 08:50 53 11 98 Nasal Cannula* 2 28 07/17/25 08:01 97.8 63 18 213/82 97 97.8 Laboratory Tests Test 07/17/25 11:10 White Blood Count 9.8 10^3/uL (4.4-10.8) Medications Medications Dose Ordered Sig/Keron Route Start Time Stop Time Status Last Admin Dose Admin Hydralazine HCl 20 mg ONCE ONCE IV 07/17/25 12:30 07/17/25 12:31 DC 07/17/25 12:35 20 MG Assessment/Plan Assessment/Plan Admitted to hospital and get a CT of the hip to rule out any occult fracture. Pain management. Blood pressure management. Orthopedic evaluation. Otherwise continue rest of supportive care and treatment and further clinical management per clinical course. Discussed with the patient's/family at bedside. Plan discussed with: Patient, Other My Orders Orders - ZOE RUIZ MD Procedure Category Date Status Time Amlodipine Tablet PHA 07/18/25 In Process (Norvasc Tablet) 10:00 (Nf) Cholecalciferol PHA 07/18/25 Logged (D3) 10:00 (Nf) Ferrous Sulfate PHA 07/17/25 Logged Dried (Iron High Po 18:00 Ct L Hip With Out CT 07/17/25 Logged Contrast 14:07 Admit ADMIT 07/17/25 Transmitted 14:07 Cardiac DIET 07/17/25 Transmitted Diet-2gna,Lofat,Lochol Dinner Echo 2d Mode Cardiac US 07/17/25 Logged DOP 14:07 *Consult Dr[address] Yin CONS 07/17/25 Transmitted Margy 14:07 Nitroglycerin PHA 07/17/25 Transmitted Sublingual (Ntrostat 14:15 Morphine Sulfate PHA 07/17/25 Transmitted Injection 14:15 Stat Ekg For Chest ELIZABETH 07/17/25 In Process Pain 14:07 Notify Of Changes ELIZABETH 07/17/25 In Process From Base 14:07 Compliance Examiner For ELIZABETH 07/17/25 In Process 24 Hours 14:07 Emergency Dysrhythmia ELIZABETH 07/17/25 In Process Protocol 14:07 Rhythm Strips Once ELIZABETH 07/17/25 In Process Every Shift 14:07 Oxygen By Nasal RT 07/17/25 Transmitted Cannula 14:07 Morphine Sulfate PHA 07/17/25 Transmitted Injection 14:15 Hydrocodone-Acet PHA 07/17/25 Transmitted 10/325mg Tab (Foster 14:15 Ondansetron Hcl PHA 07/17/25 Transmitted (Zofran) 14:15 Acetaminophen Tablet PHA 07/17/25 Transmitted (Tylenol Tablet) 14:15 Losartan Tablet PHA 07/17/25 Transmitted (Cozaar Tablet) 22:00 Losartan Tablet PHA 07/17/25 Transmitted (Cozaar Tablet) 14:15 Hydralazine Injection PHA 07/17/25 Transmitted (Apresoline Inject 14:15 Sequential ELIZABETH 07/17/25 Transmitted Compression Device 14:11 Problem List: (1) Left hip pain (2) Hypertensive urgency (3) Fall ZOE RUIZ MD Jul 17, 2025 14:14
[2025-07-17] MEDS ORDERED: ACETAMINOPHEN 325 MG TAB PO PRN (14:15)
[2025-07-17] MEDS ORDERED: NITROGLYCERIN 0.4 MG SL TAB SL PRN (14:15)
[2025-07-17] MEDS ORDERED: ONDANSETRON HCL 4 MG/2 ML VIAL IV PRN (14:15)
[2025-07-17] MEDS ORDERED: MORPHINE SULFATE 4 MG/ML SYR/VIAL IV PRN (14:30)
[2025-07-17] MEDS: LOSARTAN POTASSIUM 25 MG TAB PO ONE (14:34)
--- NOTE | 2025-07-17 15:46 | ECG ---
[facility] Test Date: 2025-07-17 Test Time: 15:44:15 Pat Name: AURORA BOLAND Department: ED Room: 0280 Gender: F Nursing Education Specialist: shama : 1945 Requested By: STEVE ORTIZ Order Number: [id number] Reading MD: Duglas Vogel Measurements Intervals [place] Rate: 87 P: 13 NM: 135 QRS: 80 QRSD: 92 T: -16 QT: 375 QTc: 451 Interpretive Statements Sinus rhythm LAE, consider biatrial enlargement Nonspecific T abnormalities, inferior leads Baseline wander in lead(s) V1,V2,V3,V5 Electronically Signed On 07-21-2025 17:15:38 PST by Duglas Vogel Please click the below link to view image of tracing.
--- NOTE | 2025-07-17 16:16 | DVH ---
INDICATION: fall with hip pain COMPARISON: XY L HIP COMPLETE XRAY on DOS: 07/17/25, CR HIP RIGHT 2-3 VIEW on DOS: 01/20/24, XY R HIP 1V XRAY on DOS: 12/08/23, XY L HIP COMPLETE XRAY on DOS: 04/02/23, R HIP COMPLETE XRAY on DOS: 04/08/21 TECHNIQUE: CT of the left hip was performed without contrast. Volume transverse images were obtained and reconstructed in multiple planes using bone and soft tissue algorithms. Radiation Dose Information: CT Dose: CTDI volume is 33.91 mGy. Dose-length product is 1170.86 mGy*cm FINDINGS: The alignment is normal. No dislocation There is no fracture, dislocation or aggressive osseous lesion. Status post left hip arthroplasty. No evidence of hardware complication. Calcified fibroid is seen measuring up to 5 cm. IMPRESSION: 1. No acute fracture or dislocation. All CT scans at this medical facility are performed using dose modulation techniques as appropriate to a performed exam including the following: Automated exposure control was utilized; adjustment of the MA and/or KV according to patient size; and use of iterative reconstruction technique.
[2025-07-17] MEDS: MORPHINE SULFATE 4 MG/ML SYR/VIAL IV PRN (16:23)
[2025-07-17] MEDS: FERROUS SULFATE 325mg EC TAB PO SCH (18:31)
[2025-07-17 19:47] VITALS: PULSE 68; RESP 12; O2SAT 98
[2025-07-17] MEDS: HYDROcodone-ACET 10/325MG TAB PO PRN (21:10)
[2025-07-17] MEDS ORDERED: TRAZ-184 PO (21:19)
[2025-07-17] MEDS: LOSARTAN POTASSIUM 25 MG TAB PO SCH (21:30)
[2025-07-17 21:37] VITALS: BP 181/75; O2SAT 96
[2025-07-17 22:03] VITALS: BP 181/85; PULSE 69; RESP 18
[2025-07-17 22:49] VITALS: BP 192/112; PULSE 69; RESP 17; TEMP 98.3; O2SAT 95
[2025-07-17] MEDS: hydrALAZINE HCL 20 MG/ML VL IV PRN (23:39)
[2025-07-18] VITALS (8 sets, daily range): BP systolic 132–164; BP diastolic 63–90; PULSE 65–89; RESP 16–18; TEMP 97.6–99.4; O2SAT 94–98
[2025-07-18] MEDS: CHOLECALCIFEROL (VITD3) 1,000UNIT=25mCg TAB PO SCH (09:34)
--- NOTE | 2025-07-18 13:20 | DVHSR ---
APPROVED REPORT EXAM: Two-dimensional and M-mode echocardiogram with Doppler and color Doppler. Blood Pressure: 158/63 mmHg INDICATION Hypertension RISK FACTORS Height: 5'4, Weight: 202 DIMENSIONS LVDd 3.6 (3.8-5.7cm) LA (2D) 4.1 (1.9-4.0cm) Aortic Root (2.0-3.7cm) LVDs 2.7 (2.5-4.0cm) LA (MM) (1.9-4.0cm) Aortic Cusp Exc (1.5-2.0cm) EF (%) 53.0 (55-70%) Rt. Atrium 3.4 (1.9-4.0cm) Asc. Aorta cm IVSd 0.9 (0.7-1.1cm) RV (D) (1.8-2.4cm) PWd 0.9 (0.7-1.1cm) Mitral Valve Mitral Mitral Stenosis E wave 0.74m/s MV Mean GR. mmHg A wave 1.15m/s MV Peak GR. 8mmHg E/A ratio 0.6 2D MVA cm2 DECEL Time 322ms PRESS 1/2 Time ms Aortic Valve Aortic Valve Aortic Stenosis V1 1.47m/s AO Mean GR. 6mmHg V2 1.71m/s AO Peak GR. 12mmHg Other Information Technically limited study due to Patient saying they are unable to move around or lay on their left side, body habitus, and difficulty breathing. Unable to obtain all windows except Apical views. Conclusion lvef 60% leftatrium enlarged mild mild to moderate mitral stenosis noted,
--- NOTE | 2025-07-18 15:09 | DVHPN2 ---
Progress Note - Dictate Date Seen: Jul 18, 2025 Medical Necessity Reason Pt with a Central, PICC or Fol: No Subjective Patient's hip CT does not show any fracture or dislocation. Pending physical therapy evaluation. Says pain is still there but improved. vital signs Vital Sign Date Time Temp Pulse Resp B/P (MAP) Pulse Ox O2 Delivery O2 Flow Rate FiO2 07/18/25 12:35 98.6 76 17 145/79 (101) 94 98.6 07/18/25 08:27 Room Air* 0 21 Total Intake and Output 07/17/25 07/17/25 07/18/25 15:00 23:00 07:00 Intake Total 200 ml Balance 200 ml medications Current Medications Medications Dose Ordered Sig/Keron Route Start Time Stop Time Status Last Admin Dose Admin Amlodipine Besylate 10 mg DAILY PO 07/18/25 10:00 07/18/25 09:35 10 MG Cholecalciferol 4,000 unit DAILY PO 07/18/25 10:00 07/18/25 09:34 4,000 UNIT Ferrous Sulfate 650 mg QPM PO 07/17/25 18:00 07/17/25 18:31 650 MG Morphine Sulfate 3 mg Q3HPRN PRN IV 07/17/25 14:15 07/17/25 16:23 3 MG Acetaminophen/ Hydrocodone Bitart 1 tab Q4HP PRN PO 07/17/25 14:15 07/18/25 13:40 1 TAB Ondansetron HCl 4 mg Q4HPRN PRN IV 07/17/25 14:15 Acetaminophen 650 mg Q4HP PRN PO 07/17/25 14:15 Losartan Potassium 25 mg BID PO 07/17/25 22:00 07/18/25 09:35 25 MG Hydralazine HCl 10 mg Q6HP PRN IV 07/17/25 14:15 07/17/25 23:39 10 MG objective Alert awake oriented x3. HEENT neck supple no JVD. Heart regular rate and rhythm S1-S2. Lungs fair air movement without rales wheezes. Abdomen soft nontender positive bowel sounds. Extremities no edema positive pulses. Able to move the left hip but complains of pain. laboratory and microbiology Laboratory Tests 07/17/25 11:10 Test 07/17/25 11:10 Range/Units Serum Glucose 95 74-106 mg/dL Assessment/Plan Continue pain management. I will add a muscle relaxant. Continue physical therapy. We will arrange for home PT with a walker. Once again counseled and educated regarding fall prevention and outpatient follow up with PCP for further evaluation management. Problems(with codes): (1) Fall (2) Left hip pain (3) Osteoarthritis of right hip Plan discussed with: Patient, Other ZOE RUIZ MD Jul 18, 2025 15:09
[2025-07-18] MEDS: METHOCARBAMOL 500 MG TAB PO SCH (21:46)
[2025-07-19] VITALS (8 sets, daily range): BP systolic 135–149; BP diastolic 64–83; PULSE 62–84; RESP 16–19; TEMP 37.4; O2SAT 95–98
--- NOTE | 2025-07-19 13:17 | DVHINCON2 ---
Consult Note Consult Consult Note History of Present Illness Ms. Wendy Wu is a patient with a history of bilateral total hip arthroplasty, including a revision of the left hip patient does not remember the year of hip replacements, She sustained a ground-level fall one day prior and develop quad pain left sided making it difficult for her to WB and Ambulate.Pt admitted via ER for pain control and further eval. On my interview today left lower extremity pain and inability to weight bear from quad pain reported by pt. Baseline pt ambulated with some residual left leg pain with walker. The patient denies any groin pain bilateral hip , deneis any back pain, Deneis lower extremity numbness or weakness. Her primary complaint is anterior thigh pain left sided , which has limited her ability to transition out of bed or bear weight. Imaging Review X-rays and CT scan of the left hip and femur were reviewed No acute fracture identified No periprosthetic fracture or implant-related complication noted Physical Examination LEFT LE: Skin: No open wounds, abrasions, or skin lesions Hip: Decreased range of motion, limited by pain left sided mid-anterior quad Thigh: Tenderness to palpation over the mid-anterior quadriceps No visible swelling, ecchymosis, or palpable defect Soft Quad and CALF COMPARTMENTS Knee: LEFT Mild reduced 2/2 quad pain, Pain over the quadriceps with knee range of motion Neurologic: Motor: Patient is actively firing the quadriceps Sensation intact Functional Status: Unable to weight bear or transition out of bed due to pain Right HIP AND KNEE ROM Full and intact gross N/V Intact Assessment 1. Left anterior thigh pain following ground-level fall 2. Suspected quadriceps strain versus partial tear 3. 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 No radiographic evidence of fracture or periprosthetic injury Plan Physical Therapy: Initiate PT focused on bed mobility, sitting tolerance, and gradual functional progression Weight Bearing: As tolerated, pending pain control and functional improvement Disposition Planning: If the patient remains unable to weight bear, recommend MRI Left quad , if no Quad abnormalities on MRI can be discharged to short-term [facility]dc facility (SNF) rehabilitation If weight bearing improves, patient may be discharged home with therapy Pain Management: Per primary medical team / hospitalist Follow-Up: Monitor clinical progress; consider further imaging if pain or functional limitations fail to improve, Followup Ortho post discharge in 1-2 weeks Er for new worsening s/s Consultation: Case discussed with Dr. Ji, who agrees with the above plan Patient Counseling: Diagnosis, imaging findings, and treatment plan discussed with the patient; all questions answered Plan discussed with: Patient, Other (bedside nurse) Visit Coding Surgery Date of Service if different f: Jul 19, 2025 Billing Provider: IVON WOODSON Surgery Visit Codes: 83161 - INP CONSULT <55 MIN IVON WOODSON Jul 19, 2025 13:17
--- NOTE | 2025-07-19 14:31 | DVHDS2 ---
Discharge Summary Date of Admission Jul 17, 2025 at 14:07 Date of Discharge: Jul 19, 2025 Labs/Diagnostic Data: Laboratory Results Test 07/17/25 14:41 07/17/25 11:10 Troponin I High Sensitivity 18 ng/L (</=34) White Blood Count 9.8 10^3/uL (4.4-10.8) Red Blood Count 4.88 10^6/uL (4.0-5.20) Hemoglobin 13.5 g/dL (12.2-16.2) Hematocrit 41.0 % (36.0-46.0) Mean Corpuscular Volume 84.0 fL (80.0-100.0) Mean Corpuscular Hemoglobin 27.6 pg (28.0-32.0) Mean Corpuscular Hemoglobin Concent 32.9 g/dL (32.0-36.0) Red Cell Distribution Width 13.9 % (11.8-14.3) Platelet Count 290 10^3/uL (140-450) Mean Platelet Volume 9.4 fL (6.9-10.8) Neutrophils (%) (Auto) 89.3 % (37.0-80.0) Lymphocytes (%) (Auto) 6.4 % (10.0-50.0) Monocytes (%) (Auto) 4.0 % (0.0-12.0) Eosinophils (%) (Auto) 0.1 % (0.0-7.0) Basophils (%) (Auto) 0.2 % (0.0-2.0) Neutrophils # (Auto) 8.8 10 ^3/uL (1.6-8.6) Lymphocytes # (Auto) 0.6 10 ^3/uL (0.4-5.4) Monocytes # (Auto) 0.4 10 ^3/uL (0-1.3) Eosinophils # (Auto) 0 10 ^3/uL (0-0.8) Basophils # (Auto) 0 10 ^3/uL (0-0.2) Nucleated Red Blood Cells 0.0 % Sodium Level 142 mmol/L (136-145) Potassium Level 3.9 mmol/L (3.5-5.1) Chloride Level 101 mmol/L (98-107) Carbon Dioxide Level 31 mmol/L (20-31) Anion Gap 10 (5-15) Blood Urea Nitrogen 12 mg/dL (9-23) Creatinine 1.09 mg/dL (0.550-1.02) Glomerular Filtration Rate Calc 52 mL/min (>90) BUN/Creatinine Ratio 11.0 (10.0-20.0) Serum Glucose 95 mg/dL (74-106) Calcium Level 10.7 mg/dL (8.7-10.4) Other Laboratory Tests 07/17/25 11:10 Brief Hx & Hospital Course: 80-year-old female BIBA with prior medical history of hypertension and then chief complaint of lower extremity pain status post fall. Patient reports the she got up to take care of her dog and lost her balance causing her to fall onto her left side injuring her left leg. Patient does have an abrasion to the right hand and has right wrist pain at this time. Daughter who was on scene called EMS and when EMS arrived they gave the patient 100mcg of fentanyl via IV they placed to the left AC. Denies any other symptoms at this time. Denies LOC, chills, fever, N/V/D, SOB, CP. No other associated symptoms, modifiers, recent injuries or sick contacts present at this time. She is admitted and had an echocardiogram did not show any acute cardiac pathology. Her fall is mechanical ground level. Patient had a CT of the hip did not show any dislocation or fracture. Patient essentially complains of pain. Therefore she is started on narcotic pain medicine and underwent physical therapy evaluation. Because of the pain she is afraid to walk. However she is counseled and educated regarding weight-bearing as tolerated with a walker and ambulate as much as possible to prevent physical deconditioning/weakness and risk of DVTs. It is felt given her pain with needing for physical therapy she would benefit from going to a prison facility. Therefore she has been transferred there in stable condition. I have talked with the patient regarding her hospital diagnosis, CT results, discharge medications, discharge follow-up plan of care. She has verbalized understanding of these and agree with the care plan as outlined. Consults/Reason for consult PROCEDURE(s): [facility] - CT L HIP WITH OUT CONTRAST REASON: fall with hip pain ORDER NUMBER(s): [id number], ACCESSION NUMBER(s): [id number] INDICATION: fall with hip pain COMPARISON: XY L HIP COMPLETE XRAY on DOS: 12/14/25, CR HIP RIGHT 2-3 VIEW on DOS: 01/20/24, XY R HIP 1V XRAY on DOS: 12/08/23, XY L HIP COMPLETE XRAY on DOS: 04/02/23, R HIP COMPLETE XRAY on DOS: 04/08/21 TECHNIQUE: CT of the left hip was performed without contrast. Volume transverse images were obtained and reconstructed in multiple planes using bone and soft tissue algorithms. Radiation Dose Information: CT Dose: CTDI volume is 33.91 mGy. Dose-length product is 1170.86 mGy*cm FINDINGS: The alignment is normal. No dislocation There is no fracture, dislocation or aggressive osseous lesion. Status post left hip arthroplasty. No evidence of hardware complication. Calcified fibroid is seen measuring up to 5 cm. IMPRESSION: 1. No acute fracture or dislocation. All CT scans at this medical facility are performed using dose modulation techniques as appropriate to a performed exam including the following: Automated exposure control was utilized; adjustment of the MA and/or KV according to patient size; and use of iterative reconstruction technique. Operations or Procedures APPROVED REPORT EXAM: Two-dimensional and M-mode echocardiogram with Doppler and color Doppler. Blood Pressure: 158/63 mmHg INDICATION Hypertension RISK FACTORS Height: 5'4, Weight: 202 DIMENSIONS LVDd 3.6 (3.8-5.7cm) LA (2D) 4.1 (1.9-4.0cm) Aortic Root (2.0- 3.7cm) LVDs 2.7 (2.5-4.0cm) LA (MM) (1.9-4.0cm) Aortic Cusp Exc (1.5- 2.0cm) EF (%) 53.0 (55-70%) Rt. Atrium 3.4 (1.9-4.0cm) Asc. Aorta cm IVSd 0.9 (0.7-1.1cm) RV (D) (1.8-2.4cm) PWd 0.9 (0.7-1.1cm) Mitral Valve Mitral Mitral Stenosis E wave 0.74m/s MV Mean GR. mmHg A wave 1.15m/s MV Peak GR. 8mmHg E/A ratio 0.6 2D MVA cm2 DECEL Time 322ms PRESS 1/2 Time ms Aortic Valve Aortic Valve Aortic Stenosis V1 1.47m/s AO Mean GR. 6mmHg V2 1.71m/s AO Peak GR. 12mmHg Other Information Technically limited study due to Patient saying they are unable to move around or lay on their left side, body habitus, and difficulty breathing. Unable to obtain all windows except Apical views. Conclusion lvef 60% leftatrium enlarged mild mild to moderate mitral stenosis noted, SIGNED BY: JAUN SKY MD SIGNED DATE/TIME: 07/18/25 1320 Condition at Discharge: Stable Final Diagnosis/Problems List Mechanical fall ground level with right hip pain without dislocation or fracture, chronic pain syndrome with narcotic dependence Discharge Disposition: Jail Facility Discharge Instruct/Medications Diet: Consistent carbohydrate, Cardiac 2g Na,low cholest Activity: No Restrictions, As Tolerated Follow Up/Referral: Orthopedic surgeon Dr. Margy jackson after two weeks Medications: As per discharge med reconciliation list Scheduled Acetaminophen (Tylenol Extra Strength), 2 TAB PO PRN, (Reported) Amlodipine Besylate (Amlodipine Besylate), 10 MG PO DAILY, (Reported) Cholecalciferol (D3), 2 CAP PO DAILY, (Reported) Ferrous Sulfate Dried (Iron High Potency), 2 TAB PO QPM, (Reported) Mecobalamin (B12), 2,500 MCG SL DAILY, (Reported) Morphine Sulfate (Morphine Sulfate), 15 MG PO TID, (Reported) Omeprazole Magnesium (Omeprazole), 40 MG PO QPM, (Reported) Miscellaneous Medications Trazodone HCl (Trazodone Hydrocloride), 100 MG PO, (Reported) Discharge Statement: "Patient was advised to return to the ER or call 911 if any headaches, dizziness, shortness of breath, chest pain, abdominal pain, bleeding, fevers, or worsening of medical condition. Patient was counseled about treatment plan, medications, possible side effects, patientverbalized understanding. All questions were answered to the best of my ability. This discharge took greater then 30 minutes in planning, reviewing documentation, counseling the patient, and discussing with other team members." ASSESSMENT ASSESSMENT Assessment Mechanical fall ground level with right hip pain without dislocation or fracture, chronic pain syndrome with narcotic dependence ZOE RUIZ MD Jul 19, 2025 14:31
== END 2025-07-19 21:05 | DRG 554 ==
LOC: EDBD 07:55 → ER 07:55 → OVERFLOW 14:07 → WEST WING 22:40
PROVIDERS: ADMIT Hospitalist; ATTEND Hospitalist
DX: M16.11 Unilateral primary osteoarthritis, right hip (principal); I16.0 Hypertensive urgency; F11.20 Opioid dependence, uncomplicated; M25.551 Pain in right hip; I10 Essential (primary) hypertension; G89.4 Chronic pain syndrome; S60.511A Abrasion of right hand, initial encounter; Z87.891 Personal history of nicotine dependence; Z79.899 Other long term (current) drug therapy; Z82.49 Family history of ischemic heart disease and other diseases of the circulatory system; Z96.643 Presence of artificial hip joint, bilateral; W01.0XXA Fall on same level from slipping, tripping and stumbling without subsequent striking against object, initial encounter; Y93.89 Activity, other specified; Y92.89 Other specified places as the place of occurrence of the external cause; Y99.8 Other external cause status
CPT/HCPCS: 36415; 71045; 73502; 73700; 80048; 84484; 85025; 93005; 93306; 97163; 99291; G0378

== ENCOUNTER 2025-07-20 23:23 | Emergency (ER) | payer OTHER ==
[~2025-07-20] VITALS: Ht 162.6 cm; Wt 90.9 kg
[~2025-07-20 23:23] MED LIST changes: +TRAZ-184 PO
[2025-07-21] MEDS: PANTOPRAZOLE 40 MG/10 ML VIAL INJ IV ONE (01:20)
[2025-07-21] MEDS: ONDANSETRON HCL 4 MG/2 ML VIAL IV ONE (01:20)
[2025-07-21] MEDS: MORPHINE SULFATE INJ 2 MG/ml SYRG IV ONE ×2 (01:30→05:28)
[2025-07-21] MEDS: fentaNYL CITRATE 100 MCG/2 ML VL IV ONE (01:37)
[2025-07-21 02:03] LABS: Hematocrit 41.5 % (36.0-46.0); Hemoglobin 13.4 g/dL (12.2-16.2); Mean Corpuscular Hemoglobin 27.1 pg (28.0-32.0); Mean Corpuscular Volume 84.2 fL (80.0-100.0); Nucleated Red Blood Cells % 0.0 %
[2025-07-21 02:27] LABS: Alanine Aminotransferase 18 U/L (7-40); Albumin 4.3 g/dL (3.2-4.8); Alkaline Phosphatase 74 U/L (46-116); Anion Gap 9 (5-15); BUN/Creatinine Ratio 20.0 (10.0-20.0); Bilirubin, Total 0.6 mg/dL (0.2-1.0); Potassium 4.0 mmol/L (3.5-5.1); Sodium 136 mmol/L (136-145); Total Protein 7.2 g/dL (5.7-8.2)
[2025-07-21 02:33] LABS: Blood Urea Nitrogen 33 mg/dL (9-23); Calcium 11.7 mg/dL (8.7-10.4); Carbon Dioxide 32 mmol/L (20-31); Chloride 95 mmol/L (98-107); Glucose 123 mg/dL (74-106)
[2025-07-21 02:50] LABS: Urine Protein, UAD TRACE (Negative)
[2025-07-21] MEDS: SODIUM CHLORIDE 0.9% 500 ML IV ONE (03:13)
--- NOTE | 2025-07-21 03:46 | DVH ---
EXAM: CT CT AB PEL WO CON-NO ORAL OR IV History: Abdominal Pain, Coffee Ground Emesis Comparison Study: CT CT L HIP WITH OUT CONTRAST on DOS: 07/17/25, XY PELVIS AP on DOS: 12/08/23 TECHNIQUE: Multidetector spiral CT of the abdomen was performed from lung bases to pubic symphysis. Imaging was performed without IV contrast. Axial, coronal and sagittal multiplanar reformats were obtained from the axial data set by the technologist. Radiation Dose : 1. Abdomen/Pelvis: CTDIvol 25.29 mGy, DLP 1416.71 mGy*cm. FINDINGS: Evaluation of solid organs is limited due to lack of intravenous contrast use. Lung Bases: No acute or significant lung base finding. Moderate bibasilar atelectasis. Normal heart size. No pleural or pericardial effusion. Liver: The liver is normal in size. No focal lesions. Gallbladder and Biliary Tree: Cholelithiasis and gallbladder distention. Spleen: Unremarkable Pancreas: The pancreas is grossly normal in appearance. Adrenal Glands: Unremarkable Kidneys: Mild bilateral renal atrophy. Kidneys are otherwise grossly normal without calculi or hydronephrosis. Bladder: Grossly unremarkable for degree of distention. Paez catheter. Bowel: Small sliding-type hiatal hernia. The stomach is grossly normal in appearance. Moderately dilated fluid and gas-filled segments of small bowel throughout the central abdomen exhibiting air-fluid levels with a Moderately gradual zone of transition of caliber within the left abdomen. No definite obstructive etiology. Diverticulosis coli without CT evidence of acute diverticulitis. Colon is otherwise normal in caliber and distribution. The appendix is normal. Ascites: Absent Lymphadenopathy: No mesenteric, retroperitoneal or periportal lymphadenopathy. Abdominal Wall and Mesentery: Unremarkable. Vasculature: The visualized abdominal aorta is normal in size and caliber. Atherosclerotic vascular calcifications. Evaluation of abdominal and pelvic vessels is limited due to lack of intravenous contrast. Pelvic Organs: Probable calcified uterine fibroid measuring 4.8 x 4.1 cm. Musculoskeletal: No aggressive focal bony lesions, acute fractures or dislocation. 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 IMPRESSION: 1. Moderately dilated fluid and gas-filled segments of small bowel throughout the central abdomen exhibiting air-fluid levels with a moderately gradual zone of transition of caliber within the left abdomen. No definite obstructive etiology. 2. Cholelithiasis and gallbladder distention. 3. Probable calcified uterine fibroid. Radiation optimization: All CT scans at this facility use at least one of these dose optimization techniques: automated exposure control mA and/or kV adjustment per patient size (includes targeted exams where dose is matched to clinical indication) or iterative reconstruction.
--- NOTE | 2025-07-21 03:54 | ED.PDOC ---
History of Present Illness HPI Comments This is a 80 year-old female, with a Hx of HTN and Hiatel Hernia, who presents to the ED via EMS with a chief complaint of coffee like emesis with abdominal pain and N/V for X3 days. Patient reports last BM was X3 days ago. Patient reports additional symptoms of palpitations with slight SOB as of today, as well as, hip pain S/P fall x3 days ago. Patient is currently on 2L O2 upon ED evaluation. There are no further complaints or modifying factors at this time. All vitals are stable. REVIEW OF SYSTEMS: General: No fever, no chills, or fatigue HEENT: No sore throat, no earache, no congestion, no neck pain. Cardiac: No chest pain. (+) palpitations. Lungs: (+) shortness of breath, no cough. GI: (+) nausea, (+) vomiting, no diarrhea, (+) constipation, (+) abdominal pain : No dysuria, frequency, or urgency. No hematuria. Musculoskeletal: (+) joint pain , no joint swelling, no extremity edema. Skin: No rash, no itching. Neuro: No headache, no dizziness, no weakness (And as sated in HPI) PHYSICAL EXAM: General: Awake, alert and oriented. No acute distress. Skin: Skin in warm, dry and intact. Appropriate color for ethnicity. HEENT: The head is normocephalic and atraumatic. Conjunctivae are clear without exudates or hemorrhage. Sclera is non-icteric. Eyelids are normal in appearance without swelling or lesions. Oral mucosa is pink and moist Neck: The neck is supple with normal range of motion. No JVD. Cardiac: Heart rate and rhythm are normal. No murmurs, gallops, or rubs are auscultated. Respiratory: No signs of respiratory distress. Lung sounds are clear in all lobes bilaterally without rales, rhonchi, or wheezes. Abdominal: (+) generalized Abdominal tenderness. Bowel sounds are present and normoactive in all four quadrants. Extremities: Lower extremities without edema. Neurological: The patient is awake, alert and oriented to person, place, and time with normal speech. Speech is clear. There is no facial asymmetry. Psychiatric: Appropriate mood and affect. Good judgement and insight. Chief Complaint: GI Bleed Time Seen by MD: 00:06 Primary Care Provider: Unknown Reviewed Notes: Medications, Allergies Allergies: Coded Allergies: NO KNOWN ALLERGIES (Unverified , 09/18/17) Home Meds Reported Medications Trazodone HCl (Trazodone Hydrocloride) 100 Mg Tab, 100 MG PO, TAB 07/17/25 Mecobalamin (B12) 5,000 Mcg Sub, 2500 MCG SL DAILY, INJ 12/05/23 Cholecalciferol (D3) 50 Mcg Cap, 2 CAP PO DAILY, CAP 12/05/23 Ferrous Sulfate Dried (Iron High Potency) 65 Mg Tab, 2 TAB PO QPM, TAB 12/05/23 Amlodipine Besylate (Amlodipine Besylate) 10 Mg Tab, 10 MG PO DAILY, TAB 12/05/23 Omeprazole Magnesium (Omeprazole) 20 Mg Tab, 40 MG PO QPM, TAB 12/05/23 Acetaminophen (Tylenol Extra Strength) 500 Mg Tab, 2 TAB PO PRN, TAB 12/05/23 Morphine Sulfate (Morphine Sulfate) 15 Mg Tab, 15 MG PO TID, TAB 12/05/23 Information Source: Patient Mode of Arrival: EMS Severity: Moderate Timing: Days Duration: Since onset Past Medical History PAST MEDICAL HISTORY: HTN Surgical History: Unknown [employer] History: Ectopic Family History Family History: Reviewed,noncontributory to illness, Unknown Social History Smoker: Quit Less Than 1 Year Alcohol: Occasionally Drugs: Denies Drug Use Lives In: Home Was a procedure done? Was a procedure done?: No Differential Dx Considerations may include: Peptic ulcer disease, esophageal varices,Jc's esophagus, cancer, diverticular disease, esophageal rupture/perforation, Michaela-Matt tear X-Ray, Labs, Meds, VS Vital Signs Date Time Temp Pulse Resp B/P (MAP) Pulse Ox O2 Delivery O2 Flow Rate FiO2 07/21/25 04:30 74 15 113/52 (72) 94 07/21/25 02:40 97.9 91 20 136/55 (82) 97 97.9 07/21/25 01:37 156/70 07/21/25 00:45 Nasal Cannula* 2 28 07/21/25 00:35 98.8 78 14 163/74 (103) 94 98.8 07/20/25 23:39 98.7 102 18 168/82 95 98.7 Lab Test 07/21/25 01:19 07/21/25 00:57 Range/Units White Blood Count 10.3 4.4-10.8 10^3/uL Red Blood Count 4.93 4.0-5.20 10^6/uL Hemoglobin 13.4 12.2-16.2 g/dL Hematocrit 41.5 36.0-46.0 % Mean Corpuscular Volume 84.2 80.0-100.0 fL Mean Corpuscular Hemoglobin 27.1 L 28.0-32.0 pg Mean Corpuscular Hemoglobin Concent 32.2 32.0-36.0 g/dL Red Cell Distribution Width 14.0 11.8-14.3 % Platelet Count 363 140-450 10^3/uL Mean Platelet Volume 9.9 6.9-10.8 fL Neutrophils (%) (Auto) 82.8 H 37.0-80.0 % Lymphocytes (%) (Auto) 8.4 L 10.0-50.0 % Monocytes (%) (Auto) 8.5 0.0-12.0 % Eosinophils (%) (Auto) 0.1 0.0-7.0 % Basophils (%) (Auto) 0.2 0.0-2.0 % Neutrophils # (Auto) 8.6 1.6-8.6 10 ^3/uL Lymphocytes # (Auto) 0.9 0.4-5.4 10 ^3/uL Monocytes # (Auto) 0.9 0-1.3 10 ^3/uL Eosinophils # (Auto) 0 0-0.8 10 ^3/uL Basophils # (Auto) 0 0-0.2 10 ^3/uL Nucleated Red Blood Cells 0.0 % Sodium Level 136 # 136-145 mmol/L Potassium Level 4.0 3.5-5.1 mmol/L Chloride Level 95 L 98-107 mmol/L Carbon Dioxide Level 32 H 20-31 mmol/L Anion Gap 9 5-15 Blood Urea Nitrogen 33 H 9-23 mg/dL Creatinine 1.65 #H 0.550-1.02 mg/dL Glomerular Filtration Rate Calc 31 >90 mL/min BUN/Creatinine Ratio 20.0 10.0-20.0 Serum Glucose 123 H 74-106 mg/dL Lactic Acid Level 1.0 0.4-2.0 mmol/L Calcium Level 11.7 H 8.7-10.4 mg/dL Total Bilirubin 0.6 0.2-1.0 mg/dL Aspartate Amino Transferase (AST) 41 H 13-40 U/L Alanine Aminotransferase (ALT) 18 7-40 U/L Alkaline Phosphatase 74 46-116 U/L Total Protein 7.2 5.7-8.2 g/dL Albumin 4.3 3.2-4.8 g/dL Urine Color Yellow Yellow Urine Clarity Clear Clear Urine pH 5.5 5.0-9.0 Urine Specific [place] 1.023 1.001-1.035 Urine Protein Trace H Negative Urine Ketones Trace Negative Urine Blood Negative Negative /uL Urine Nitrite Negative Negative Urine Bilirubin Negative Negative Urine Urobilinogen 2 H Negative mg/dL Urine Leukocyte Esterase Negative Negative /uL Urine RBC 4 0 - 4 /hpf Urine Microscopic WBC < 1 0-5 /HPF Urine Squamous Epithelial Cells Few <5 /hpf Urine Bacteria Few H None Seen /hpf Urine Hyaline Casts Few 0 - 2 /lpf Urine Glucose Normal Normal mg/dL Current Medications Medications (Trade) Dose Ordered Sig/Keron Route Start Time Stop Time Status Last Admin Pantoprazole Sodium (Protonix) 40 mg ONCE ONCE IV 07/21/25 01:00 07/21/25 01:01 DC 07/21/25 01:20 Ondansetron HCl (Zofran) 4 mg ONCE ONCE IV 07/21/25 01:15 07/21/25 01:16 DC 07/21/25 01:20 Fentanyl Citrate 12.5 mcg ONCE ONCE IV 07/21/25 01:15 07/21/25 01:16 DC 07/21/25 01:37 Sodium Chloride 500 ml @ 500 mls/hr Q1H ONCE IV 07/21/25 02:45 07/21/25 03:44 DC 07/21/25 03:13 [place] [id number] Ph: [phone] DIAGNOSTIC IMAGING Diagnostic Imaging Report : [id number] Signed PATIENT: AURORA BOLAND ACCT: [id number] UNIT: [id number] : 1945 LOC: ER ROOM / BED: / AGE / SEX: 80 / F ADM STATUS: REG ER SERVICE [id number] ORDERING PHYSICIAN: MARCIANO SANTOS MD PROCEDURE(s): ABPL - CT AB PEL WO CON-NO ORAL OR IV REASON: Abdominal Pain, Coffee Ground Emesis ORDER NUMBER(s): [id number], ACCESSION NUMBER(s): [id number] EXAM: CT CT AB PEL WO CON-NO ORAL OR IV History: Abdominal Pain, Coffee Ground Emesis Comparison Study: CT CT L HIP WITH OUT CONTRAST on DOS: 07/17/25, XY PELVIS AP on DOS: 12/08/23 TECHNIQUE: Multidetector spiral CT of the abdomen was performed from lung bases to pubic symphysis. Imaging was performed without IV contrast. Axial, coronal and sagittal multiplanar reformats were obtained from the axial data set by the technologist. Radiation Dose : 1. Abdomen/Pelvis: CTDIvol 25.29 mGy, DLP 1416.71 mGy*cm. FINDINGS: Evaluation of solid organs is limited due to lack of intravenous contrast use. Lung Bases: No acute or significant lung base finding. Moderate bibasilar atelectasis. Normal heart size. No pleural or pericardial effusion. Liver: The liver is normal in size. No focal lesions. Gallbladder and Biliary Tree: Cholelithiasis and gallbladder distention. Spleen: Unremarkable Pancreas: The pancreas is grossly normal in appearance. Adrenal Glands: Unremarkable Kidneys: Mild bilateral renal atrophy. Kidneys are otherwise grossly normal without calculi or hydronephrosis. Bladder: Grossly unremarkable for degree of distention. Paez catheter. Bowel: Small sliding-type hiatal hernia. The stomach is grossly normal in appearance. Moderately dilated fluid and gas-filled segments of small bowel throughout the central abdomen exhibiting air-fluid levels with a Moderately gradual zone of transition of caliber within the left abdomen. No definite obstructive etiology. Diverticulosis coli without CT evidence of acute diverticulitis. Colon is otherwise normal in caliber and distribution. The appendix is normal. Ascites: Absent Lymphadenopathy: No mesenteric, retroperitoneal or periportal lymphadenopathy. Abdominal Wall and Mesentery: Unremarkable. Vasculature: The visualized abdominal aorta is normal in size and caliber. Atherosclerotic vascular calcifications. Evaluation of abdominal and pelvic vessels is limited due to lack of intravenous contrast. Pelvic Organs: Probable calcified uterine fibroid measuring 4.8 x 4.1 cm. Musculoskeletal: No aggressive focal bony lesions, acute fractures or dislocation. 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 IMPRESSION: 1. Moderately dilated fluid and gas-filled segments of small bowel throughout the central abdomen exhibiting air-fluid levels with a moderately gradual zone of transition of caliber within the left abdomen. No definite obstructive etiology. 2. Cholelithiasis and gallbladder distention. 3. Probable calcified uterine fibroid. Radiation optimization: All CT scans at this facility use at least one of these dose optimization techniques: automated exposure control mA and/or kV adjustment per patient size (includes targeted exams where dose is matched to clinical indication) or iterative reconstruction. Time of 1ST Reevaluation: 03:53 Reevaluation 1ST: Unchanged Time of 2ND Reevaluation: 04:42 (Discussed with Jorge Fry request for admission. He will see patient in ED. ) Patient Education/Counseling: Other (Need for admission) Family Education/Counseling: No Family Present SEPSIS Sepsis Screen Date sepsis recognized/suspect: Jul 21, 2025 Time Sepsis recognized/suspect: 44 Recent Procedure: No On Antibiotic Therapy: No Respiratory Rate >20: No Heart Rate >90: No Temp<36 C (96.8 F) or >38.3 C: No SBP <90 or MAP <65 mmHG: No New Acute Mental Status Change: No Is the patient on CPAP, BIPAP,: No Physician Orders Stool Occult Blood (07/21/25 00:57) Insert/Manage Urinary Catheter QSHIFT (07/21/25 01:31) Ct Ab Pel Wo Con-No Oral Or Iv (07/21/25 02:45) Vital Signs Date Time Temp Pulse Resp B/P (MAP) Pulse Ox O2 Delivery O2 Flow Rate FiO2 07/21/25 04:30 74 15 113/52 (72) 94 07/21/25 02:40 97.9 91 20 136/55 (82) 97 97.9 07/21/25 01:37 156/70 07/21/25 00:45 Nasal Cannula* 2 28 07/21/25 00:35 98.8 78 14 163/74 (103) 94 98.8 07/20/25 23:39 98.7 102 18 168/82 95 98.7 Laboratory Tests Test 07/21/25 01:19 Lactic Acid Level 1.0 mmol/L (0.4-2.0) White Blood Count 10.3 10^3/uL (4.4-10.8) Medications Medications Dose Ordered Sig/Keron Route Start Time Stop Time Status Last Admin Dose Admin Fentanyl Citrate 12.5 mcg ONCE ONCE IV 07/21/25 01:15 07/21/25 01:16 DC 07/21/25 01:37 Ondansetron HCl 4 mg ONCE ONCE IV 07/21/25 01:15 07/21/25 01:16 DC 07/21/25 01:20 Pantoprazole Sodium 40 mg ONCE ONCE IV 07/21/25 01:00 07/21/25 01:01 DC 07/21/25 01:20 Sodium Chloride 500 ml @ 500 mls/hr Q1H ONCE IV 07/21/25 02:45 07/21/25 03:44 DC 07/21/25 03:13 Departure 1 Departure Time of Disposition: 04:44 Impression: Primary Impression: GI bleed Disposition: ADMITTED INPATIENT Condition: Stable Comments 80-year-old female with abdominal pain, coffee-ground emesis Patient admitted to hospitalist service for further treatment, evaluation and monitoring. Critical Care Note Critical Care Time?: No Stability Stability form required: No Heart Score Heart Score: Heart Score Response (Comments) Value History N/A 0 EKG N/A 0 Age N/A 0 Risk Factors N/A 0 Troponin N/A 0 Total 0 I personally scribed for MARCIANO SANTOS MD ([email or web address]) on 07/21/25 at 03:54. Electronically submitted by Kamille Avery ([employer]). I personally scribed for MARCIANO SANTOS MD ([email or web address]) on 07/21/25 at 03:55. Electronically submitted by Kamille Avery ([employer]). MARCIANO SANTOS MD Jul 21, 2025 03:54
[2025-07-21] MEDS: MORPHINE SULFATE 4 MG/ML SYR/VIAL ONE (07:38)
--- NOTE | 2025-07-21 07:41 | DVHINCON2 ---
Date of service: Jul 21, [address] Leong Reason for Consultation Medical management History of Present Illness 80-year-old female with past medical history of hiatal hernia, multiple falls presents with complaints of episode of vomiting that began on Friday. Patient was recently [facility] to prison [facility] for physical therapy following an admission for mechanical fall. Patient endorsed that she was unhappy with the care she was being given at the prison facility because they declined to give her a pain pill. Was also very upset because they tried to feed her salad with peppers. Which she believes is not an appropriate diet for somebody with a hiatal hernia. States she had an episode of black vomiting. Was also complaining of abdominal pain that began yesterday. Patient is also endorsing she has not eaten well since arriving at the prison facility. States last bowel movement was 3 days ago. At this time there are no complaints of fevers, chills, shortness of breath, dizziness, unilateral de ficits, chest pain, palpitations, diarrhea, hematemesis, hematochezia, melena. Family History: Patient reports no known family medical history. Allergies: Coded Allergies: NO KNOWN ALLERGIES (Unverified , 09/18/17) Home Meds Reported Medications Trazodone HCl (Trazodone Hydrocloride) 100 Mg Tab, 100 MG PO, TAB 07/17/25 Mecobalamin (B12) 5,000 Mcg Sub, 2500 MCG SL DAILY, INJ 12/05/23 Cholecalciferol (D3) 50 Mcg Cap, 2 CAP PO DAILY, CAP 12/05/23 Ferrous Sulfate Dried (Iron High Potency) 65 Mg Tab, 2 TAB PO QPM, TAB 12/05/23 Amlodipine Besylate (Amlodipine Besylate) 10 Mg Tab, 10 MG PO DAILY, TAB 12/05/23 Omeprazole Magnesium (Omeprazole) 20 Mg Tab, 40 MG PO QPM, TAB 12/05/23 Acetaminophen (Tylenol Extra Strength) 500 Mg Tab, 2 TAB PO PRN, TAB 12/05/23 Morphine Sulfate (Morphine Sulfate) 15 Mg Tab, 15 MG PO TID, TAB 12/05/23 Review of Systems Ten systems reviewed and negative except as per HPI Vital Signs Vital Signs Date Time Temp Pulse Resp B/P (MAP) Pulse Ox O2 Delivery O2 Flow Rate FiO2 07/21/25 06:25 98.1 69 18 127/71 (89) 97 98.1 07/21/25 00:45 Nasal Cannula* 2 28 Physical Exam GENERAL: Patient appearing stated age, in no acute distress. HEENT: Pupils equal and reactive to light and accommodation. Extraocular muscles intact. Mucous membranes moist. Conjunctivae pink. Anicteric sclerae. LUNGS: Bilateral air entry. No wheezes, rhonchi or rales. HEART: Regular rate and rhythm. Normal S1 and S2. ABDOMEN: BS normoactive, soft, nontender, and nondistended. No CVA tenderness. EXTREMITIES: No clubbing, cyanosis, edema. No calf tenderness. Pedal pulses 2+. NEUROLOGICAL: The patient is alert and oriented times 3. CN II-XII intact. No focal deficits on gross sensory or motor examination. Labs/Diagnostic Data Labs Test 07/21/25 01:19 07/21/25 00:57 Range/Units White Blood Count 10.3 4.4-10.8 10^3/uL Red Blood Count 4.93 4.0-5.20 10^6/uL Hemoglobin 13.4 12.2-16.2 g/dL Hematocrit 41.5 36.0-46.0 % Mean Corpuscular Volume 84.2 80.0-100.0 fL Mean Corpuscular Hemoglobin 27.1 L 28.0-32.0 pg Mean Corpuscular Hemoglobin Concent 32.2 32.0-36.0 g/dL Red Cell Distribution Width 14.0 11.8-14.3 % Platelet Count 363 140-450 10^3/uL Mean Platelet Volume 9.9 6.9-10.8 fL Neutrophils (%) (Auto) 82.8 H 37.0-80.0 % Lymphocytes (%) (Auto) 8.4 L 10.0-50.0 % Monocytes (%) (Auto) 8.5 0.0-12.0 % Eosinophils (%) (Auto) 0.1 0.0-7.0 % Basophils (%) (Auto) 0.2 0.0-2.0 % Neutrophils # (Auto) 8.6 1.6-8.6 10 ^3/uL Lymphocytes # (Auto) 0.9 0.4-5.4 10 ^3/uL Monocytes # (Auto) 0.9 0-1.3 10 ^3/uL Eosinophils # (Auto) 0 0-0.8 10 ^3/uL Basophils # (Auto) 0 0-0.2 10 ^3/uL Nucleated Red Blood Cells 0.0 % Sodium Level 136 # 136-145 mmol/L Potassium Level 4.0 3.5-5.1 mmol/L Chloride Level 95 L 98-107 mmol/L Carbon Dioxide Level 32 H 20-31 mmol/L Anion Gap 9 5-15 Blood Urea Nitrogen 33 H 9-23 mg/dL Creatinine 1.65 #H 0.550-1.02 mg/dL Glomerular Filtration Rate Calc 31 >90 mL/min BUN/Creatinine Ratio 20.0 10.0-20.0 Serum Glucose 123 H 74-106 mg/dL Lactic Acid Level 1.0 0.4-2.0 mmol/L Calcium Level 11.7 H 8.7-10.4 mg/dL Total Bilirubin 0.6 0.2-1.0 mg/dL Aspartate Amino Transferase (AST) 41 H 13-40 U/L Alanine Aminotransferase (ALT) 18 7-40 U/L Alkaline Phosphatase 74 46-116 U/L Total Protein 7.2 5.7-8.2 g/dL Albumin 4.3 3.2-4.8 g/dL Urine Color Yellow Yellow Urine Clarity Clear Clear Urine pH 5.5 5.0-9.0 Urine Specific [place] 1.023 1.001-1.035 Urine Protein Trace H Negative Urine Ketones Trace Negative Urine Blood Negative Negative /uL Urine Nitrite Negative Negative Urine Bilirubin Negative Negative Urine Urobilinogen 2 H Negative mg/dL Urine Leukocyte Esterase Negative Negative /uL Urine RBC 4 0 - 4 /hpf Urine Microscopic WBC < 1 0-5 /HPF Urine Squamous Epithelial Cells Few <5 /hpf Urine Bacteria Few H None Seen /hpf Urine Hyaline Casts Few 0 - 2 /lpf Urine Glucose Normal Normal mg/dL Assessment Acute kidney injury Abdominal pain Left hip pain s/p mechanical fall Patient was seen and evaluated in ER bed 11 in the presence of tax staff accountant. The patient's chart was reviewed in his entirety, including lab work, imaging, nursing notes, and physical assessment. During the emergency department evaluation CBC: W 10.3, H&H 13.4/41.5, PLT 363; unchanged since previous labs on July 17, 2025. CMP: NA 136, K4.0, BUN 133, creatinine 1.65, GFR 31. UA is negative for infectious process. CT of the abdomen and pelvis without contrast, was interpreted by the radiologist and reviewed per myself. Impression reads moderately dilated fluid and Gas filled segments of small bowel throughout the central abdomen exhibiting air fluid levels with a moderately gradual zone of transition of caliber within the left abdomen. No definite obstructive etiology. On physical examination, the patient is alert and oriented times four. She has remained hemodynamically stable as documented in the EHR. There are active bowel sounds to all four quadrants with no palpable tenderness. The patient was treat ed with a total of 1 L normal saline for dehydration. Patient tolerated eating a sandwich and drinking water without any signs of nausea or vomiting. In addition, the patient endorsed the reason she came back to the emergency department because she was unhappy with the care she was receiving at the prison facilities. Patient case was also discussed with [facility] [place] general [place], Dr Julisa Tian, who agrees there is no need for impatient admission. Plan/Recommendation After discussing the current findings with the patient, I have advised her she will be discharged home with close outpatient follow up. The patient is to be discharged home. At this time, considering that the patient is refusing to return to prison facility. [facility] welfare manager has been consulted to establish home safety evaluation, home health with physical therapy, follow up visit at [facility] urgent care in two days for repeat lab work: BMP, CBC. Will also plan for outpatient gastroenterology consultation. The patient was provided with strict ER precautions, including, but not limited to dizziness, shortness of breath, fevers, chills, chest pain, palpitations, nausea, vomiting, hematemesis, hematochezia, melena. If any of these occur, she has been instructed to return to the nearest emergency department for further evaluation and treatment. Patient case and plan of care was discussed in detail with supervising physician, Dr Ochoa was in agreement with the current plan of care. Plan discussed with: Patient CLARY CHO NP Jul 21, 2025 07:41
[2025-07-21 08:00] VITALS: PULSE 88; RESP 14; O2SAT 94
[2025-07-21 12:06] VITALS: TEMP 97.9
[2025-07-21 13:25] VITALS: BP 112/59; PULSE 67; RESP 14; O2SAT 94
== END 2025-07-21 14:07 | disposition home or self-care (01) ==
LOC: EDBD 23:23 → ER 23:23
DX: K92.2 Gastrointestinal hemorrhage, unspecified (principal); I10 Essential (primary) hypertension; Z79.899 Other long term (current) drug therapy
CPT/HCPCS: 36415; 74176; 80053; 81001; 83605; 85025; 87086; 96374; 96375; 99285; J2270; J2405; J2470; J3010

== ENCOUNTER 2025-07-25 12:03 | Emergency (ER) | payer OTHER ==
[~2025-07-25] VITALS: Ht 162.6 cm; Wt 100.0 kg
[2025-07-25] MEDS ORDERED: DEXTROSE (50%) 50ML SYRG IV ONE (12:04)
[2025-07-25] MEDS ORDERED: D5W 5% 100 ML MINI BAG IV ONE (12:04)
[2025-07-25] MEDS ORDERED: ATROPINE SULF 1 MG/10ml SYR IV ONE (12:04)
[2025-07-25] MEDS ORDERED: SODIUM BICARB 8.4% 50Meq/50ml SYR INJ IV ONE (12:04)
[2025-07-25] MEDS ORDERED: EPINEPHrine HCL 1 MG/10 ML SYRG IV ONE (12:04)
[2025-07-25] MEDS ORDERED: AMIODARONE HCL (50 MG/ ML) 3 ML VIAL IV ONE (12:04)
[2025-07-25] MEDS ORDERED: AMIODARONE BOLUS KIT 100 ML IV ONE (12:30)
--- NOTE | 2025-07-25 12:47 | ED.PDOC ---
CPR-HPI HPI Comments 80-year-old, morbidly obese F is [id number] ambulance from private residence for cardiopulmonary arrest. Per EMS personnel report, family called after finding the patient down and unresponsive for, approximately, 30x minutes. Last well known time was 2-3 hours ago and only reported history of left hip surgery per family. Arrival on scene at 1123, with initial rhythm of PEA in the 40's range and a blood glucose of 78. CPR efforts initiated. ROSC achieved at 1143, with 12 lead showing 2nd degree type II blockage with STEMI in leads II, III, and aVF. Patient the became asystole at 1150, with no changes upon arrival to ED at 1202. Interventions: 6x epinephrine rounds, with 1x push dose (last dose administered at 1159), 1x lidocaine administration, 1x 100 joule shock, 1x 1L IV fluid via 20G RAC, I/O to right tibia, Accucheck, 7.5 endotracheal intubation. 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 Chief Complaint: CPR Time Seen by MD: 12:02 Primary Care Provider: Unknown Reviewed Notes: Collator Operator Notes, Medications, Allergies Allergies: Coded Allergies: NO KNOWN ALLERGIES (Unverified , 09/18/17) Home Meds Reported Medications Trazodone HCl (Trazodone Hydrocloride) 100 Mg Tab, 100 MG PO, TAB 07/17/25 Mecobalamin (B12) 5,000 Mcg Sub, 2500 MCG SL DAILY, INJ 12/05/23 Cholecalciferol (D3) 50 Mcg Cap, 2 CAP PO DAILY, CAP 12/05/23 Ferrous Sulfate Dried (Iron High Potency) 65 Mg Tab, 2 TAB PO QPM, TAB 12/05/23 Amlodipine Besylate (Amlodipine Besylate) 10 Mg Tab, 10 MG PO DAILY, TAB 12/05/23 Omeprazole Magnesium (Omeprazole) 20 Mg Tab, 40 MG PO QPM, TAB 12/05/23 Acetaminophen (Tylenol Extra Strength) 500 Mg Tab, 2 TAB PO PRN, TAB 12/05/23 Morphine Sulfate (Morphine Sulfate) 15 Mg Tab, 15 MG PO TID, TAB 12/05/23 Information Source: Emergency Med Personnel Mode of Arrival: EMS Timing: Hours Duration: Down time prior EMS: (30 minutes ), Total time prior hopital: (60 minutes (50 minutes prior to 1st ROSC, 10 minutes after lost of 1st ROSC)) Onset: Unknown Available Hx: Other (hip surgery ) Inital rhythm: PEA Treatment: CPR, Intubation, Defibrillation, IV, Epinephrine, Other (see HPI) Associated signs and symptoms: Unknown Past Medical History PAST MEDICAL HISTORY: HTN Surgical History (Other): hip surgery 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 Family History Family History: Reviewed,noncontributory to illness, Unknown Social History Smoker: Quit Less Than 1 Year Alcohol: Occasionally Drugs: Denies Drug Use Lives In: Home Unable to Obtain due to: Medical Urgency (cardiopulmonary arrest ), Intubated All Other Systems: Deferred Physical Exam General Appearance: Obese, Severe Distress HEENT: TMs Normal, Other (, the patient is also intubated) Neck: Supple Respiratory: Chest Non-Tender, Other (The patient is intubated) Cardiovascular: Other (Asystole) Breast Exam: Deferred Gastrointestinal: Soft Genitalia: Deferred Pelvic: Deferred Rectal: Deferred Extremities: Pedal edema, Slow capillary refill Musculoskeletal : Apperance: Normal Neurologic: Other (GCS of three) Cerebellar Function: NOT DONE Reflexes: None Skin: Dry, Pallor, Warm Lymphatic: No Adenopathy EKG EKG : Pulse Rate (adult): 68 Cardiac Rhythm: Afib ST: Nonsp Was a procedure done? Was a procedure done?: No Differential Dx CPR Differential Diagnosis: Cardiopulmonary arrest, Cardiac Tamponade, Cardiogenic shock, Dysrhythmia, Electrolyte disorder, Heart Block, Myocardial Infarction, Pulmonary Embolus, Respiratory Failure X-Ray, Labs, Meds, VS Vital Signs Date Time Temp Pulse Resp B/P (MAP) Pulse Ox O2 Delivery O2 Flow Rate FiO2 07/25/25 12:20 Mechanical Ventilator+ 21 21 Lab Test 07/25/25 12:15 Range/Units White Blood Count 13.2 #H 4.4-10.8 10^3/uL Red Blood Count 3.68 L 4.0-5.20 10^6/uL Hemoglobin 10.1 #L 12.2-16.2 g/dL Hematocrit 33.4 #L 36.0-46.0 % Mean Corpuscular Volume 90.8 # 80.0-100.0 fL Mean Corpuscular Hemoglobin 27.5 L 28.0-32.0 pg Mean Corpuscular Hemoglobin Concent 30.3 L 32.0-36.0 g/dL Red Cell Distribution Width 15.1 H 11.8-14.3 % Platelet Count 148 140-450 10^3/uL Mean Platelet Volume 10.7 6.9-10.8 fL Neutrophils (%) (Auto) 37.0-80.0 % Lymphocytes (%) (Auto) 10.0-50.0 % Monocytes (%) (Auto) 0.0-12.0 % Basophils (%) (Auto) 0.0-2.0 % Neutrophils # (Auto) 1.6-8.6 10 ^3/uL Lymphocytes # (Auto) 0.4-5.4 10 ^3/uL Monocytes # (Auto) 0-1.3 10 ^3/uL Differential Total Cells Counted Pending Neutrophils % (Manual) Pending Band Neutrophils % (Manual) Pending Lymphocytes % (Manual) Pending Monocytes % (Manual) Pending Eosinophils % (Manual) Pending Basophils % (Manual) Pending Metamyelocytes % (manual) Pending Myelocytes % (Manual) Pending Promyelocytes % (Manual) Pending Blast Cells % (Manual) Pending Reactive Lymphocytes Pending Platelet Estimate Pending D-Dimer, Quantitative > 35.20 H 0.0-0.49 mg/L FEU Sodium Level 138 136-145 mmol/L Potassium Level 6.9 #*H 3.5-5.1 mmol/L Chloride Level 92 L 98-107 mmol/L Carbon Dioxide Level 23 20-31 mmol/L Anion Gap 23 H 5-15 Blood Urea Nitrogen 85 *H 9-23 mg/dL Creatinine 3.59 #H 0.550-1.02 mg/dL Glomerular Filtration Rate Calc 12 >90 mL/min BUN/Creatinine Ratio 23.7 H 10.0-20.0 Serum Glucose 359 H 74-106 mg/dL Calcium Level 8.1 L 8.7-10.4 mg/dL Magnesium Level 2.8 H 1.6-2.6 mg/dL Troponin I High Sensitivity 3201 *H </=34 ng/L After CPR was performed, the patient had a brief return of pulses The patient's daughter has arrived and we brought her back at bedside during the code blue The patient's chemistry panel shows a potassium of 6.9 as well as a BUN of 85 and a creatinine of 3.59 The patient's troponin level is elevated at 3201 The D-dimer is greater than 35 The patient's CBC showed a signs of anemia After our attempts, we called the code efforts. Time of 1ST Reevaluation: 12:32 Reevaluation 1ST: Unchanged Patient Education/Counseling: Other (Patient is intubated) Family Education/Counseling: Diagnosis, Treatment SEPSIS Sepsis Screen Physician Orders Complete Blood Count (07/25/25 12:17) Urinalysis (07/25/25 12:17) Abg W/ Co-Ox (07/25/25 12:17) Peaz Catheters (07/25/25 12:17) Ngt/Ogt (07/25/25 12:17) Night Cleaner (07/25/25 12:17) Blood Pressure (07/25/25 12:17) Pulse Oximetry (07/25/25 12:17) Heplock Iv (07/25/25 12:17) Electrocardigram (07/25/25 12:17) Troponin-I Hs (07/25/25 13:17) Troponin-I Hs (07/25/25 15:17) Electrocardigram (07/25/25 13:17) Electrocardigram (07/25/25 15:17) Amiodarone 450mg/250ml Ae (Cordarone) (07/25/25 12:30) Amiodarone 450mg/250ml Ae (Cordarone) (07/25/25 20:00) Manual Differential (07/25/25 12:15) Vital Signs Date Time Temp Pulse Resp B/P (MAP) Pulse Ox O2 Delivery O2 Flow Rate FiO2 07/25/25 12:20 Mechanical Ventilator+ 21 21 Laboratory Tests Test 07/25/25 12:15 White Blood Count 13.2 10^3/uL (4.4-10.8) #H Departure 1 Departure Time of Disposition: 14:11 Impression: Primary Impression: Cardiopulmonary arrest Disposition: 20 Condition: Other (The patient has ) Critical Care Note Critical Care Time?: No Heart Score Heart Score: Heart Score Response (Comments) Value History Highly Suspicious [address]-Deviation 2 Age >65 2 Risk Factors 1 or 2 risk factors 1 Troponin Normal limit 0 Total 7 Stability Stability form required: No I personally scribed for CARMEN GAMBOA MD ([email or web address]) on 07/25/25 at 12:47. Electronically submitted by Baldev Mcdermott ([email or web address]). CARMEN GAMBOA MD Jul 25, 2025 12:47
[2025-07-25 12:55] LABS: Hemoglobin 10.1 g/dL (12.2-16.2)
[2025-07-25 12:57] LABS: Hematocrit 33.4 % (36.0-46.0); Mean Corpuscular Hemoglobin 27.5 pg (28.0-32.0); Mean Corpuscular Volume 90.8 fL (80.0-100.0); Sodium 138 mmol/L (136-145)
[2025-07-25 12:58] LABS: Anion Gap 23 (5-15); Carbon Dioxide 23 mmol/L (20-31)
[2025-07-25 13:03] LABS: BUN/Creatinine Ratio 23.7 (10.0-20.0)
[2025-07-25 13:06] LABS: Calcium 8.1 mg/dL (8.7-10.4); Chloride 92 mmol/L (98-107); Glucose 359 mg/dL (74-106); Magnesium 2.8 mg/dL (1.6-2.6)
[2025-07-25 13:08] LABS: Blood Urea Nitrogen 85 mg/dL (9-23); Potassium 6.9 mmol/L (3.5-5.1)
[2025-07-25 14:11] VITALS: PULSE 68
[2025-07-25 14:57] LABS: Total Cells Counted 100.0 (100)
--- NOTE | 2025-07-25 15:29 | RESUS ---
CODE BLUE ASSESSSMENT History of Events History of Events: PT FOUND BY FAMILY UNRESPONSIVE, APPROX DOWNTIME OF 30 MINS. LAST SEEN NORMAL 2-3 HOURS PRIOR TO ARRIVAL. PT WAS GIVEN EPINEPHRINE X 6 AND LIDOCAINE X 1 BY EMS. ROSC ACHIEVED IN ROUTE BREIFLY. PT WENT INTO VTACH AND WAS THEN SHOCKED.PULSES LOST. PT ARRIVES TO ER WITH CPR IN PROGRESS. ROSC OBTAINED IN ER AT 1210. PT LOST PULSES AGAIN AT 1220. TOD 1224. Initial Information Date: Jul 25, 2025 Time: 12:02 Location of Arrest: In Field Arrest Witnessed: No CPR started by whom: EMS Pre-Hospital Care: ACLS Type of arrest: Cardiac Spontaneous Respirations: No Pulse Present: No Monitoring: ECG, Pulse Oximetry Crash Cart Opened and Supplies: Yes Airway Ventilation Breathing at Onset: Assisted Oxygen Delivery Method: Ambu-Bag Intubation Size: 7.5 cuffed Intubated by: EMS Intubated orally: Yes Tube secured at: 23 Confirmation: Auscultation, Exhaled CO2 Suctioning (Oral/Tracheal): Yes Circulation Circulation #1: Time: 12:04 Pulse Rate (adult): 0 Blood Pressure Systolic: 0 Blood Pressure Diastolic: 0 Circulation Comment: PT ARRIVES TO ER PULSELESS. Circulation #2: Time: 12:08 Pulse Rate (adult): 0 Blood Pressure Systolic: 0 Blood Pressure Diastolic: 0 Temperature (Fahrenheit): 95.9 Circulation Comment: PT IN ASYSTOLE. Circulation #3: Time: 12:10 Pulse Rate (adult): 39 Blood Pressure Systolic: 229 Blood Pressure Diastolic: 128 Circulation Comment: ROSC ACHEIVED. Circulation #4: Time: 12:20 Pulse Rate (adult): 0 Blood Pressure Systolic: 0 Blood Pressure Diastolic: 0 Circulation Comment: PT WENT BRADYCADIC THEN LOST PULSES. Procedure - IV Procedure - IV : IV Side: Right IV Location: Antecubital IV Catheter Type: Peripheral IV IV Placed: Pre-Hospital IV Placed by EMS IV Gauge: 20 Procedure - Intraosseous Site of Intraosseous: Tibia lillian-medial Intraosseous inserted by: EMS Medications & Response Medications and Responses #1: Medication Time: 12:04 ADULT Medications Given ADULT: Epinephrine 1 mg Route of Administration: IV Heart Rate: 0 EKG Rhythm: Asystole Blood Pressure Systolic: 0 Blood Pressure Diastolic: 0 Respiratory Rate: 0 O2 Sat by Pulse Oximetry: 0 Medications and Responses #2: Medication Time: 12:05 ADULT Medications Given ADULT: Sodium Bacarbinate 50 meq Route of Administration: IV Medications and Responses #3: Medication Time: 12:06 ADULT Medications Given ADULT: D50 (amp) Route of Administration: IV Medication Comment: GIVEN FOR BS OF 18 Medications and Responses #4: Medication Time: 12:07 ADULT Medications Given ADULT: Epinephrine 1 mg Route of Administration: IV EKG Rhythm: Asystole Blood Pressure Systolic: 0 Blood Pressure Diastolic: 0 Respiratory Rate: 0 O2 Sat by Pulse Oximetry: 0 Medications and Responses #5: Medication Time: 12:09 ADULT Medications Given ADULT: Sodium Bacarbinate 50 meq Route of Administration: IV Medications and Responses #6: Medication Time: 12:11 ADULT Medications Given ADULT: Atropine 1 mg Route of Administration: IV EKG Rhythm: Sinus Bradycardia Blood Pressure Systolic: 229 Blood Pressure Diastolic: 128 Medications and Responses #7: Medication Time: 12:15 ADULT Medications Given ADULT: Amiodarone 150 mg Route of Administration: IV Medications and Responses #8: Medication Time: 12:20 ADULT Medications Given ADULT: Epinephrine 1 mg Route of Administration: IV Heart Rate: 0 EKG Rhythm: Asystole EKG Rhythm: Asystole Medications and Responses #9: Medication Time: 12:23 ADULT Medications Given ADULT: Epinephrine 1 mg Route of Administration: IV Heart Rate: 0 EKG Rhythm: Asystole EKG Rhythm: Asystole Procedure - NG/OG Tube Procedure - NG/OG Tube : Type of gastric tube placed: NG Gastric Tube Location: Left Nare NG/OG tube inserted by: EMS Nurses Notes [place] Coma Scale Eye Opening: None (1) [place] Coma Scale Verbal: None (1) [place] Coma Scale Motor: None (1) [place] Total: 3 Pupil Reaction: Non Reactive Bedside Blood Glucose: 116 (INITIAL BS 18.REPEAT AFTER AMP DEXTROSE 312BS ON SECOND CODE ) Time Code Ended Time Code Ended: 12:24 Post Arrest Status: Outcome of code: Unsuccessful Patient pronounced by: DR GAMBOA Time patient pronounced: 12:24 Family notified: Yes Code Team Present: ZACKARY VICENTE RT ALEXANDRA MACEDO RN RUSS RN JAKI RN MARGO ERT AIDA ERT KOBE ERT Post Resuscitation Neurologica Pupil Size: 7 RAVINDER HOOPER Jul 25, 2025 15:29
--- NOTE | 2025-07-25 23:52 | ECG ---
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
--- NOTE | 2025-07-25 23:52 | ECG ---
[facility] Test Date: 2025-07-25 Test Time: 12:17:10 Pat Name: AURORA BOLAND Department: ED Room: Gender: F Eye Care Professional: : 1945 Requested By: CARMEN GAMBOA Order Number: [id number] Reading MD: Duglas Vogel Measurements Intervals [place] Rate: 68 P: 0 [place]: 0 QRS: -91 QRSD: 197 T: 83 QT: 494 QTc: 526 Interpretive Statements Atrial fibrillation Right bundle branch block Left ventricular hypertrophy Baseline wander in lead(s) V1 Electronically Signed On 07-29-2025 10:26:38 PST by Duglas Vogel Please click the below link to view image of tracing.
== END 2025-07-25 12:25 ==
LOC: EDBD 12:03 → ER 12:03
DX: I46.9 Cardiac arrest, cause unspecified (principal); I10 Essential (primary) hypertension; F10.90 Alcohol use, unspecified, uncomplicated; Z79.899 Other long term (current) drug therapy; Z87.891 Personal history of nicotine dependence
CPT/HCPCS: 36415; 36600; 80048; 82805; 82947; 83735; 84484; 85007; 85027; 85379; 92950; 93005; 99285; J0169; J0282; J7042; J7060